=== PATIENT | male | born 1925 | race Hispanic/Latino ===

== ENCOUNTER 2016-03-20 19:14 | Inpatient (IN) | payer MEDICARE, MEDICAID ==
[~2016-03-20] VITALS: Ht 172.7 cm; Wt 68.0 kg
[2016-03-20 19:40] VITALS: BP 134/72
[2016-03-20] MEDS ORDERED: Tylenol #3 tab (300mg/30mg) PO ONE (20:00)
[2016-03-20 22:13] LABS: EOSINOPHILS % (AUTO) 1.7 % (0.0-3.0); LYMPHOCYTES % (AUTO) 17.8 % (20.0-45.0); MEAN CORPUSCULAR HEMOGLOBIN 30.2 PG (27.0-31.0); MEAN CORPUSCULAR HGB CONC 31.8 G/DL (32.0-36.0); MEAN CORPUSCULAR VOLUME 95 FL (80-99); MEAN PLATELET VOLUME 6.7 FL (6.5-10.1); MONOCYTES % (AUTO) 7.2 % (1.0-10.0); NEUTROPHILS % (AUTO) 72.4 % (45.0-75.0); PLATELET COUNT 292 K/UL (150-450); RED BLOOD COUNT 3.71 M/UL (4.70-6.10); RED CELL DISTRIBUTION WIDTH 13.3 % (11.6-14.8); WHITE BLOOD COUNT 10.9 K/UL (4.8-10.8)
[2016-03-20 22:26] LABS: INR 2.2 (0.9-1.1); PROTHROMBIN TIME 22.5 SEC (9.30-11.50)
[2016-03-20 22:29] LABS: ALANINE AMINOTRANSFERASE 14 U/L (3-41); ANION GAP 21 (5-15); ASPARTATE AMINO TRANSFERASE 26 U/L (5-40); CALCIUM 8.6 mg/dL (8.6-10.2); CARBON DIOXIDE 20 mEQ/L (20-30); CHLORIDE 95 mEQ/L (98-107); CREATININE 5.1 mg/dL (0.7-1.2); HEMOLYSIS 3; POTASSIUM 4.5 mEQ/L (3.4-4.9); SODIUM 136 mEQ/L (135-145); TOTAL PROTEIN 6.9 g/dL (6.6-8.7)
[2016-03-20] MEDS ORDERED: NKM (22:40)
--- NOTE | 2016-03-20 23:05 | Emergency Room Report ---
History of Present Illness General Chief Complaint: Multiple Trauma/Fall Source: EMS Present Illness HPI 89-year-old male presents ED complaining of right hip pain. Per EMS patient [place] [employer] Patient hit his head. No LOC. Patient is complaining of some right-sided hip pain and headache. Pain is sharp , 10 out of 10, nonradiating. No other aggravating relieving factors. Patient states he is unable to bear weight on his right leg. Denies any other injuries. Denies any other associated symptoms Allergies: Coded Allergies: No Known Allergies (Verified , 03/19/09) Patient History Past Medical History: none Past Surgical History: none Pertinent Family History: none Social History: Denies: alcohol use, drug use, smoking Immunizations: UTD Reviewed Nursing Documentation: PMH: Agreed, PSxH: Agreed Nursing Documentation-PMH Past Medical History: No Stated History Review of Systems All Other Systems: negative except mentioned in HPI Physical Exam Vital Signs Date Time Temp Pulse Resp B/P Pulse Ox O2 Delivery O2 Flow Rate FiO2 03/20/16 19:22 98.2 64 18 134/72 98 Room Air Sp02 EP Interpretation: reviewed, normal General Appearance: no apparent distress, alert, GCS 15, non-toxic Head: normocephalic Eyes: bilateral eye PERRL, bilateral eye normal inspection ENT: normal ENT inspection Neck: normal inspection Respiratory: chest non-tender, lungs clear, normal breath sounds, speaking full sentences Cardiovascular #1: regular rate, rhythm, no edema Gastrointestinal: normal bowel sounds, non tender, soft, non-distended, no guarding, no rebound Rectal: deferred Genitourinary: no CVA tenderness Musculoskeletal: other - pain to R hip. limited ROM Neurologic: alert, oriented x3, responsive, motor strength/tone normal, sensory intact, speech normal Psychiatric: normal inspection Skin: normal inspection Lymphatic: normal inspection Medical Decision Making Diagnostic Impression: Primary Impression: Intertrochanteric fracture of right femur Qualified Codes: S72.141A - Displaced intertrochanteric fracture of right femur, initial encounter for closed fracture Additional Impression: ARF (acute renal failure) Qualified Codes: N17.9 - Acute kidney failure, unspecified ER Course Hospital Course 89-year-old male presents to ED with R hip pain and shortening s/p fall Differential diagnoses include: fracture, dislocation, contusion Clinical course Patient placed on stretcher. After initial history and physical I ordered labs , pain medication and imaging studies Labs reviewed- no leukocytosis, hb/hct stable, BUN/CR 89/5.1. Chest x-ray- unremarkable Femur x-ray shows shortening of femur consistent with fracture CT Pelvis shows R intertrochanteric fx CT head ok EKG - NSR Case discussed with Dr. Amanda who agreed to consult on this case. Case discussed with Dr. Lopez who agreed to accept the patient to his service for further care and support i. I feel this is a highly complex case requiring extensive working including EKG/Rhythm strip, Xray/CT/US, Blood/urine lab work, repeat exams while in ED, and administration of strong opiates/narcotics for pain control, admission to hospital or close patient follow up. Diagnosis - intertrochanteric fracture, ARF Admitted to floor in serious condition Labs Test 03/20/16 21:45 White Blood Count 10.9 K/UL (4.8-10.8) Red Blood Count 3.71 M/UL (4.70-6.10) Hemoglobin 11.2 G/DL (14.2-18.0) Hematocrit 35.3 % (42.0-52.0) Mean Corpuscular Volume 95 FL (80-99) Mean Corpuscular Hemoglobin 30.2 PG (27.0-31.0) Mean Corpuscular Hemoglobin Concent 31.8 G/DL (32.0-36.0) Red Cell Distribution Width 13.3 % (11.6-14.8) Platelet Count 292 K/UL (150-450) Mean Platelet Volume 6.7 FL (6.5-10.1) Neutrophils (%) (Auto) 72.4 % (45.0-75.0) Lymphocytes (%) (Auto) 17.8 % (20.0-45.0) Monocytes (%) (Auto) 7.2 % (1.0-10.0) Eosinophils (%) (Auto) 1.7 % (0.0-3.0) Basophils (%) (Auto) 1.0 % (0.0-2.0) Prothrombin Time 22.5 SEC (9.30-11.50) Prothromb Time International Ratio 2.2 (0.9-1.1) Activated Partial Thromboplast Time 40 SEC (23-33) Sodium Level 136 mEQ/L (135-145) Potassium Level 4.5 mEQ/L (3.4-4.9) Chloride Level 95 mEQ/L (98-107) Carbon Dioxide Level 20 mEQ/L (20-30) Anion Gap 21 (5-15) Blood Urea Nitrogen 89 mg/dL (7-23) Creatinine 5.1 mg/dL (0.7-1.2) Estimat Glomerular Filtration Rate mL/min (>60) Glucose Level 136 mg/dL (74-106) Calcium Level 8.6 mg/dL (8.6-10.2) Total Bilirubin 0.3 mg/dL (0.0-1.2) Aspartate Amino Transf (AST/SGOT) 26 U/L (5-40) Alanine Aminotransferase (ALT/SGPT) 14 U/L (3-41) Alkaline Phosphatase 66 U/L (40-129) Total Protein 6.9 g/dL (6.6-8.7) Albumin 3.6 g/dL (3.5-5.2) Globulin 3.3 g/dL Albumin/Globulin Ratio 1.0 (1.0-2.7) EKG Diagnostic Results Rate: normal Rhythm: NSR ST Segments: no acute changes ASA given to the pt in ED: No Rhythm Strip Diag. Results EP Interpretation: yes Rhythm: NSR, no PVC's, no ectopy Chest X-Ray Diagnostic Results EP Interpretation: Yes Findings: no consolidation, no effusion, no pneumothorax, no acute cardiopulmonary disease Number of Views: 1 Other X-Ray Diagnostic Results Other X-Ray Diagnostic Results : X-Ray Ordered: R femur EP Interpretation: Yes Findings: no dislocation, other - intertrochanteric fx Number of Views: 3 CT/MRI/US Diagnostic Results CT/MRI/US Diagnostic Results : Imaging Test Ordered: CT Head, CT Pelvis Impression CT head - no acute process CT pelvis - R intertrochanteric fx Last Vital Signs Date Time Temp Pulse Resp B/P Pulse Ox O2 Delivery O2 Flow Rate FiO2 03/20/16 22:16 98.2 03/20/16 19:40 89 18 134/72 98 Room Air Status: improved Disposition: ADMITTED INPATIENT Condition: Serious Referrals: NOT CHOSEN IPA/,REFERRING (PCP) BARBI PATTERSON M.D. Mar 20, 2016 23:05
[2016-03-20 23:49] VITALS: BP 135/76
[2016-03-21 02:10] VITALS: BP 115/71
[2016-03-21 04:00] VITALS: BP 121/79
[2016-03-21] MEDS ORDERED: Zolpidem 5mg tab ORAL PRN (07:00)
[2016-03-21] MEDS ORDERED: Milk of Magnesia 30ml Ud ORAL PRN (07:00)
[2016-03-21 08:15] VITALS: BP 157/75
[2016-03-21] MEDS ORDERED: Heparin 5000 units/ml inj SUBQ SCH ×2 (09:00→21:00)
--- NOTE | 2016-03-21 09:12 | Diagnostic Imaging Report ---
Indication: Chest pain Technique: XRAY CHEST 1 V Comparison: None Findings: Cardiomediastinal silhouette is within normal limits. Atherosclerotic changes are seen. There is no consolidation or pleural effusion. Degenerative changes of the spine are seen. Mild reticular opacities are seen of the lower lung green. Chronic appearing left seventh rib fracture deformity is noted. Impression: Mild acuity indeterminate interstitial opacities of the lung bases with suspected calcification in the right base. Comparison to prior study should be made if available. Clinical correlation recommended with followup as indicated.
--- NOTE | 2016-03-21 09:38 | Diagnostic Imaging Report ---
Indication: Right hip pain status post fall Technique: CT pelvis was performed utilizing automated exposure control without intravenous contrast material. Axial and coronal images were generated. CT dose: Total DLP 344 mGycm; CTDI vol 11.0 mGy Comparison: None Findings: There is a minimally impacted right femoral neck fracture. Osteopenia is noted. There is anterolisthesis of L5 on S1 with left L5 pars defect. Partially visualized bilateral rib deformities are present. Prostate is prominent. Colonic diverticula are noted. Atherosclerotic changes are seen. Post surgical changes of bowel are seen in the pelvis. Impression: Acute minimally impacted right femoral neck fracture. Other findings as above. The CT scanner at [facility] is accredited by the [employer] and the scans are performed using protocols designed to limit radiation exposure to as low as reasonably achievable to attain images of sufficient resolution adequate for diagnostic evaluation.
[2016-03-21] MEDS: Norco 10mg/325mg tab ORAL PRN (10:16)
--- NOTE | 2016-03-21 10:43 | Consultation ---
Consult Note Consult Note patient seen/evaluated. Right hip impacted femoral neck fracture, [place] I. Recommend surgery with percutaneous pinning. Risk/Benefits/Complications discussed. Monitor INR and repeat PT/PTT. NPO past midnight. Medical clearance per Dr. Talavera. 2D echo ordered. NEO Page Mar 21, 2016 10:43
[2016-03-21 11:41] LABS: BASOPHILS % (AUTO) 1.2 % (0.0-2.0); EOSINOPHILS % (AUTO) 3.7 % (0.0-3.0); LYMPHOCYTES % (AUTO) 22.1 % (20.0-45.0); MEAN CORPUSCULAR HEMOGLOBIN 30.9 PG (27.0-31.0); MEAN CORPUSCULAR VOLUME 96 FL (80-99); MEAN PLATELET VOLUME 5.4 FL (6.5-10.1); MONOCYTES % (AUTO) 9.7 % (1.0-10.0); NEUTROPHILS % (AUTO) 63.3 % (45.0-75.0); PLATELET COUNT 246 K/UL (150-450); RED BLOOD COUNT 3.23 M/UL (4.70-6.10); RED CELL DISTRIBUTION WIDTH 13.1 % (11.6-14.8); WHITE BLOOD COUNT 9.3 K/UL (4.8-10.8)
--- NOTE | 2016-03-21 11:46 | Diagnostic Imaging Report ---
Indication: Right femur pain status post fall Technique: XRAY FEMUR 2 VIEWS RIGHT Comparison: None Findings: There is a minimally impacted right femoral neck fracture. Osteopenia is noted. Right knee arthroplasty is seen. Impression: Minimally impacted right femoral neck fracture.
--- NOTE | 2016-03-21 11:46 | Diagnostic Imaging Report ---
Indication: Head pain status post fall Technique: Continuous helical CT scanning of the head was performed utilizing automated exposure control without intravenous contrast material. Axial and coronal reconstructions were obtained. Comparison: None CT dose: Total DLP 1369 mGycm; CTDI vol 70.4 mGy Findings: There is no acute intracranial hemorrhage, mass effect or cortical edema. The ventricles, cisterns and sulci are prominent consistent with atrophy. Periventricular hypoattenuation is seen, a nonspecific finding. The posterior fossa and fourth ventricle are unremarkable. Sellar and suprasellar regions are grossly unremarkable. Visualized mastoid air cells and paranasal sinuses are unremarkable. No focal lesions of the bony calvarium or soft tissues of the scalp are seen. Impression: No evidence of acute intracranial hemorrhage, mass effect or cortical edema. MRI may be obtained for more sensitive evaluation as clinically indicated. Atrophy and nonspecific periventricular hypoattenuation suggestive of chronic ischemic microvascular changes. The CT scanner at [facility] is accredited by the [employer] and the scans are performed using protocols designed to limit radiation exposure to as low as reasonably achievable to attain images of sufficient resolution adequate for diagnostic evaluation.
[2016-03-21 11:50] VITALS: BP 139/72
[2016-03-21 12:07] LABS: ANION GAP 17 (5-15); CALCIUM 8.1 mg/dL (8.6-10.2); CARBON DIOXIDE 19 mEQ/L (20-30); CHLORIDE 106 mEQ/L (98-107); CREATININE 4.3 mg/dL (0.7-1.2); HEMOLYSIS 1; POTASSIUM 4.3 mEQ/L (3.4-4.9); SODIUM 142 mEQ/L (135-145)
--- NOTE | 2016-03-21 12:47 | Consultation ---
Consult Note Consult Note asked to eval at the request of Dr Talavera 89-year-old male presents ED complaining of right hip pain. Per EMS patient had mechanical [place] [employer] Patient hit his head. No LOC. Patient is complaining of some right-sided hip pain and headache. Pain is sharp , 10 out of 10, nonradiating. No other aggravating relieving factors. Patient states he is unable to bear weight on his right leg. Denies any other injuries. Denies any other associated symptoms Patient interviewed and examined- Data reviewed . Assessment/Plan Acute Renal Failure - ? CKD underlying- ( Baseline SCr unknown) In house for fall and right hip Fx- h/o Bladder vs Prostate Ca, had surgery at [facility] Plan: Tucker- Urine studies- IV hydration- Monitor Renal Parameters- check PSA and Testostrone level CAITLYN LAKHANI Mar 21, 2016 12:47
[2016-03-21] MEDS ORDERED: HYDROmorphone 1mg/ml Carpuject IVP PRN (13:00)
[2016-03-21] MEDS: Docusate 100mg cap ORAL SCH ×2 (14:29→17:04)
[2016-03-21 16:00] VITALS: BP 153/79
[2016-03-21 19:58] VITALS: BP 144/62
[2016-03-21] MEDS: Tamsulosin 0.4mg cap ORAL SCH (20:40)
[2016-03-21 22:00] LABS: APPEARANCE,URINE CLOUDY; KETONES,URINE NEGATIVE (NEGATIVE); LEUKOCYTE ESTERASE ,URINE 2+ (NEGATIVE); NITRITE,URINE NEGATIVE (NEGATIVE); PH,URINE 6.5 (4.5-8.0); PROTEIN,URINE 4+ (NEGATIVE); UROBILINOGEN,URINE NORMAL MG/DL (0.0-1.0)
[2016-03-21 22:15] LABS: BACTERIA,URINE FEW /HPF; RBC,URINE TNTC /HPF (0 - 0)
[2016-03-21 22:16] LABS: SQUAMOUS EPITHELIAL CELL,UR OCCASIONAL /LPF (NONE/OCC)
[2016-03-22] VITALS (14 sets, daily range): BP systolic 131–184; BP diastolic 52–86
--- NOTE | 2016-03-22 04:17 | History and Physical Report ---
DATE OF ADMISSION: 03/20/2016 REASON FOR ADMISSION: Status post fall with evidence of right intertrochanteric fracture. HISTORY OF PRESENT ILLNESS: The patient is an 89-year-old male presented to the emergency room. The patient with significant right hip pain. The patient apparently had a mechanical trip and fall non syncopal. the patient has had no loss of consciousness. The patient complains of right-sided hip pain and headache and was evaluated in the emergency room. The patient unable to bear weight. He noted to have a right intertrochanteric fracture. The patient is comfortable at present, but does have significant amount of pain. Incidentally, the patient noted to have significant renal failure, but denies any dialysis. PAST MEDICAL HISTORY: None. MEDICATIONS: None. SOCIAL HISTORY: The patient currently is homeless, nonsmoker, nondrinker. REVIEW OF SYSTEMS: Otherwise fairly negative. PHYSICAL EXAMINATION: GENERAL: A well-developed male comfortable at present. VITAL SIGNS: Blood pressure 157/75, pulse 92, respiratory 21, saturation 97%, and temperature 97.7 degrees. HEENT: Fairly negative. Extraocular movements are grossly intact. NECK: Supple. LUNGS: Fairly clear. Symmetric. CARDIAC: S1 and S2 regular rhythm. Positive S4. No murmurs or rubs. ABDOMEN: Soft and nontender. EXTREMITIES: No cyanosis or clubbing. The patient has some deformities noted of the right leg. Unable to move the hip . NEUROLOGIC: He is otherwise grossly nonfocal. Alert. LABORATORY AND DIAGNOSTIC DATA: Reviewed. BUN 89, creatinine 5.1, sodium 136, and potassium 4.5. White count 10.9, hemoglobin 11.2, hematocrit 35, and platelets are 292,000. X-ray noted and reviewed with notable right femoral neck fracture. IMPRESSION: 1. Status post non syncopal fall. 2. Right hip fracture. 3. Evidence of chronic renal failure. 4. Evidence of anemia. 5. Advanced age debility. RECOMMENDATION: We will obtain echocardiogram. We will obtain renal ultrasound and renal evaluation to assess further IV hydration. Pain control. DVT prophylaxis. Proceed with orthopedic surgery. Pending clearance. Obtain Cardiology evaluation to assess and monitor clinically for further changes and ongoing intervention . Gustavo Lopez M.D. DR: Liban JOB#: [id number] CC: CHYNA
[2016-03-22] MEDS: Norco 10mg/325mg tab ORAL PRN (05:16)
[2016-03-22] MEDS ORDERED: ceFAZolin sod 1 GM in D5W 55 ML IV ONE (06:00)
[2016-03-22 07:37] LABS: INR 1.6 (0.9-1.1); PROTHROMBIN TIME 16.4 SEC (9.30-11.50)
[2016-03-22 07:38] LABS: BASOPHILS % (AUTO) 0.6 % (0.0-2.0); EOSINOPHILS % (AUTO) 2.9 % (0.0-3.0); LYMPHOCYTES % (AUTO) 18.2 % (20.0-45.0); MEAN CORPUSCULAR HEMOGLOBIN 31.4 PG (27.0-31.0); MEAN CORPUSCULAR HGB CONC 32.4 G/DL (32.0-36.0); MEAN CORPUSCULAR VOLUME 97 FL (80-99); MEAN PLATELET VOLUME 6.4 FL (6.5-10.1); MONOCYTES % (AUTO) 9.2 % (1.0-10.0); NEUTROPHILS % (AUTO) 69.2 % (45.0-75.0); PLATELET COUNT 217 K/UL (150-450); RED BLOOD COUNT 2.91 M/UL (4.70-6.10); WHITE BLOOD COUNT 9.6 K/UL (4.8-10.8)
[2016-03-22 07:45] LABS: HEMOGLOBIN A1C 5.2 % (< 6.0)
[2016-03-22 08:08] LABS: FERRITIN 220 ng/mL (10-230)
[2016-03-22 08:18] LABS: ALANINE AMINOTRANSFERASE 10 U/L (3-41); ALBUMIN/GLOBULIN RATIO 0.8 (1.0-2.7); ANION GAP 18 (5-15); ASPARTATE AMINO TRANSFERASE 15 U/L (5-40); CARBON DIOXIDE 18 mEQ/L (20-30); CHLORIDE 107 mEQ/L (98-107); CHOLESTEROL 120 mg/dL (< 200); CHOLESTEROL/HDL RATIO 2.1 (3.3-4.4); CRP QUANT 15.5 mg/dL (< 0.5); HEMOLYSIS 3; LDL CHOLESTEROL (CALC.) 47 mg/dL (60-99); MAGNESIUM 1.8 mg/dL (1.7-2.5); PHOSPHORUS 3.9 mg/dL (2.5-4.8); POTASSIUM 4.2 mEQ/L (3.4-4.9); SODIUM 143 mEQ/L (135-145); TOTAL PROTEIN 5.5 g/dL (6.6-8.7); URIC ACID 8.4 mg/dL (3.0-7.5)
--- NOTE | 2016-03-22 08:18 | General Progress Note ---
Assessment/Plan Assessment/Plan IMPRESSION: 1. Status post non syncopal fall. 2. Right hip fracture. 3. Evidence of chronic renal failure. 4. Evidence of anemia. 5. Advanced age debility. PLAN obtain echo proceed with ortho rx will need short term snf pain medications otherwise same check renal us and follow up labs impression, plan, and exam edited and reviewed in detail care discussed with RN Subjective Allergies: Coded Allergies: No Known Allergies (Verified , 03/19/09) Subjective comfortable all consultants appreciated echo pending Objective Last 24 Hour Vital Signs Date Time Temp Pulse Resp B/P Pulse Ox O2 Delivery O2 Flow Rate FiO2 03/22/16 04:00 97.9 109 20 159/83 91 Room Air 03/22/16 00:09 184/78 03/22/16 00:00 98.4 101 20 184/78 93 Room Air 03/21/16 19:58 99.1 106 20 144/62 93 Room Air 03/21/16 16:00 98.6 93 18 153/79 92 Room Air 03/21/16 11:50 98.4 95 21 139/72 99 Room Air 03/21/16 11:15 98.4 Intake and Output 03/21/16 03/22/16 19:00 07:00 Intake Total 2050 ml 1450 ml Output Total 1400 ml 1650 ml Balance 650 ml -200 ml Intake Oral 960 ml 250 ml IV Total 1090 ml 1200 ml Output Urine Total 1400 ml 1650 ml # Voids 4 Laboratory Tests 03/21/16 11:30: White Blood Count 9.3, Red Blood Count 3.23L, Hemoglobin 10.0L, Hematocrit 31.1L , Mean Corpuscular Volume 96, Mean Corpuscular Hemoglobin 30.9, Mean Corpuscular Hemoglobin Concent 32.0, Red Cell Distribution Width 13.1, Platelet Count 246, Mean Platelet Volume 5.4L, Neutrophils (%) (Auto) 63.3, Lymphocytes ( %) (Auto) 22.1, Monocytes (%) (Auto) 9.7, Eosinophils (%) (Auto) 3.7H, Basophils (%) (Auto) 1.2, Activated Partial Thromboplast Time 43H, Sodium Level 142, Potassium Level 4.3, Chloride Level 106, Carbon Dioxide Level 19L, Anion Gap 17H, Blood Urea Nitrogen 77H, Creatinine 4.3H, Estimat Glomerular Filtration Rate , Glucose Level 130H, Calcium Level 8.1L 03/21/16 17:30: Urine Color Pale yellow, Urine Appearance Cloudy, Urine pH 6.5, Urine Specific [place] 1.010, Urine Protein 4+H, Urine Glucose (UA) Negative, Urine Ketones Negative, Urine Occult Blood 5+H, Urine Nitrite Negative, Urine Bilirubin Negative, Urine Urobilinogen Normal, Urine Leukocyte Esterase 2+H, Urine RBC TntcH, Urine WBC 10-15H, Urine Squamous Epithelial Cells Occasional, Urine Bacteria Few, Urine Eosinophils None seen, Urine Random Sodium 56 03/22/16 05:00: Urine Eosinophils [Pending] 03/22/16 06:50: White Blood Count 9.6, Red Blood Count 2.91L, Hemoglobin 9.2L, Hematocrit 28.3L , Mean Corpuscular Volume 97, Mean Corpuscular Hemoglobin 31.4H, Mean Corpuscular Hemoglobin Concent 32.4, Red Cell Distribution Width 13.0, Platelet Count 217, Mean Platelet Volume 6.4L, Neutrophils (%) (Auto) 69.2, Lymphocytes ( %) (Auto) 18.2L, Monocytes (%) (Auto) 9.2, Eosinophils (%) (Auto) 2.9, Basophils (%) (Auto) 0.6, Sodium Level [Pending], Potassium Level [Pending], Chloride Level [Pending], Carbon Dioxide Level [Pending], Blood Urea Nitrogen [ Pending], Creatinine [Pending], Estimat Glomerular Filtration Rate [Pending], Glucose Level [Pending], Calcium Level [Pending], Prothrombin Time 16.4H, Prothromb Time International Ratio 1.6H, Hemoglobin A1c 5.2, Uric Acid [Pending] , Phosphorus Level [Pending], Magnesium Level [Pending], Iron Level [Pending], Unsaturated Iron Binding [Pending], Ferritin 220, Total Bilirubin [Pending], Gamma Glutamyl Transpeptidase [Pending], Aspartate Amino Transf (AST/SGOT) [ Pending], Alanine Aminotransferase (ALT/SGPT) [Pending], Alkaline Phosphatase [ Pending], C-Reactive Protein, Quantitative [Pending], Pro-B-Type Natriuretic Peptide 2575H, Total Protein [Pending], Albumin [Pending], Globulin [Pending], Triglycerides Level [Pending], Cholesterol Level [Pending], LDL Cholesterol [ Pending], HDL Cholesterol [Pending], Cholesterol/HDL Ratio [Pending], Prostate Specific Antigen [Pending], Vitamin B12 Level [Pending], Folate [Pending], Total Testosterone [Pending] Height (Feet): 5 Height (Inches): 8.00 Weight (Pounds): 150 Objective GENERAL: A well-developed male NAD HEENT: Fairly negative. Extraocular movements are grossly intact. NECK: Supple. LUNGS: Fairly clear. Symmetric. without rhonchi or wheeze CARDIAC: S1 and S2 regular rhythm. Positive S4. No murmurs or rubs. ABDOMEN: Soft and nontender. no HSM EXTREMITIES: No cyanosis or clubbing. The patient has some deformities noted of the right leg. Unable to move the hip . NEUROLOGIC: He is otherwise grossly nonfocal. Alert. PATRIA PLEITEZ Mar 22, 2016 08:18
[2016-03-22 08:43] LABS: PSA TOTAL 4.3 ng/mL (< 4.5)
[2016-03-22] MEDS: Docusate 100mg cap ORAL SCH ×3 (09:00→20:19)
--- NOTE | 2016-03-22 09:47 | General Progress Note ---
Assessment/Plan Status: unchanged Assessment/Plan status: Acute Renal Failure - ? CKD underlying- ( Baseline SCr unknown) In hospital for fall and right hip Fx- HEMATURIA, h/o Bladder vs Prostate Ca, had surgery at [facility] ? UTI Plan: Monitor renal parameter- Antibiotics- Kidney GOE- pending start Lopressor for BP- Rocephin IV Subjective ROS Limited/Unobtainable: No Constitutional: Reports: malaise Allergies: Coded Allergies: No Known Allergies (Verified , 03/19/09) Objective Last 24 Hour Vital Signs Date Time Temp Pulse Resp B/P Pulse Ox O2 Delivery O2 Flow Rate FiO2 03/22/16 04:00 97.9 109 20 159/83 91 Room Air 03/22/16 00:09 184/78 03/22/16 00:00 98.4 101 20 184/78 93 Room Air 03/21/16 19:58 99.1 106 20 144/62 93 Room Air 03/21/16 16:00 98.6 93 18 153/79 92 Room Air 03/21/16 11:50 98.4 95 21 139/72 99 Room Air 03/21/16 11:15 98.4 Intake and Output 03/21/16 03/22/16 19:00 07:00 Intake Total 2050 ml 1450 ml Output Total 1400 ml 1650 ml Balance 650 ml -200 ml Intake Oral 960 ml 250 ml IV Total 1090 ml 1200 ml Output Urine Total 1400 ml 1650 ml # Voids 4 Laboratory Tests 03/21/16 11:30: White Blood Count 9.3, Red Blood Count 3.23L, Hemoglobin 10.0L, Hematocrit 31.1L , Mean Corpuscular Volume 96, Mean Corpuscular Hemoglobin 30.9, Mean Corpuscular Hemoglobin Concent 32.0, Red Cell Distribution Width 13.1, Platelet Count 246, Mean Platelet Volume 5.4L, Neutrophils (%) (Auto) 63.3, Lymphocytes ( %) (Auto) 22.1, Monocytes (%) (Auto) 9.7, Eosinophils (%) (Auto) 3.7H, Basophils (%) (Auto) 1.2, Activated Partial Thromboplast Time 43H, Sodium Level 142, Potassium Level 4.3, Chloride Level 106, Carbon Dioxide Level 19L, Anion Gap 17H, Blood Urea Nitrogen 77H, Creatinine 4.3H, Estimat Glomerular Filtration Rate , Glucose Level 130H, Calcium Level 8.1L 03/21/16 17:30: Urine Color Pale yellow, Urine Appearance Cloudy, Urine pH 6.5, Urine Specific [place] 1.010, Urine Protein 4+H, Urine Glucose (UA) Negative, Urine Ketones Negative, Urine Occult Blood 5+H, Urine Nitrite Negative, Urine Bilirubin Negative, Urine Urobilinogen Normal, Urine Leukocyte Esterase 2+H, Urine RBC TntcH, Urine WBC 10-15H, Urine Squamous Epithelial Cells Occasional, Urine Bacteria Few, Urine Eosinophils None seen, Urine Random Sodium 56 03/22/16 05:00: Urine Eosinophils None seen 03/22/16 06:50: White Blood Count 9.6, Red Blood Count 2.91L, Hemoglobin 9.2L, Hematocrit 28.3L , Mean Corpuscular Volume 97, Mean Corpuscular Hemoglobin 31.4H, Mean Corpuscular Hemoglobin Concent 32.4, Red Cell Distribution Width 13.0, Platelet Count 217, Mean Platelet Volume 6.4L, Neutrophils (%) (Auto) 69.2, Lymphocytes ( %) (Auto) 18.2L, Monocytes (%) (Auto) 9.2, Eosinophils (%) (Auto) 2.9, Basophils (%) (Auto) 0.6, Sodium Level 143, Potassium Level 4.2, Chloride Level 107, Carbon Dioxide Level 18L, Anion Gap 18H, Blood Urea Nitrogen 69H, Creatinine 4.0H, Estimat Glomerular Filtration Rate , Glucose Level 116H, Calcium Level 8.0L, Prothrombin Time 16.4H, Prothromb Time International Ratio 1.6H, Hemoglobin A1c 5.2, Uric Acid 8.4H, Phosphorus Level 3.9, Magnesium Level 1.8, Iron Level 18L, Total Iron Binding Capacity 153L, Percent Iron Saturation 12L, Unsaturated Iron Binding 135, Ferritin 220, Total Bilirubin 0.5, Gamma Glutamyl Transpeptidase 11, Aspartate Amino Transf (AST/SGOT) 15, Alanine Aminotransferase (ALT/SGPT) 10, Alkaline Phosphatase 51, C-Reactive Protein, Quantitative 15.5H, Pro-B-Type Natriuretic Peptide 2575H, Total Protein 5.5L, Albumin 2.6L, Globulin 2.9, Albumin/Globulin Ratio 0.8L, Triglycerides Level 83 , Cholesterol Level 120, LDL Cholesterol 47L, HDL Cholesterol 56, Cholesterol/ HDL Ratio 2.1L, Prostate Specific Antigen 4.3, Vitamin B12 Level 390, Folate [ Pending], Total Testosterone [Pending] Height (Feet): 5 Height (Inches): 8.00 Weight (Pounds): 150 General Appearance: no apparent distress Objective other PE not changed CAITLYN LAKHANI Mar 22, 2016 09:47
[2016-03-22] MEDS: Metoprolol 25mg tab ORAL SCH ×2 (11:27→20:19)
[2016-03-22] MEDS: cefTRIAXone 1 GM in D5W 55 ML IVPB SCH (11:28)
--- NOTE | 2016-03-22 15:36 | Pre-Procedure Note/Attestation ---
Pre-Procedure Note/Attestation Complete Prior to Procedure Planned Procedure: right Procedure Narrative: Rt Hip ORIF with percutaneous pins Indications for Procedure Pre-Operative Diagnosis: Rt Hip Fracture Attestation I attest that I discussed the nature of the procedure; its benefits; risks and complications; and alternatives (and the risks and benefits of such alternatives ), prior to the procedure, with the patient (or the patient's legal bilingual sales representative). I attest that, if there was a reasonable possibility of needing a blood transfusion, the patient (or the patient's legal bilingual sales representative) was given the [facility] standardized written summary, pursuant to the Dean Debo Blood Safety Act ([place] Health and Safety Code # 1645, as amended). I attest that I re-evaluated the patient just prior to the surgery and that there has been no change in the patient's H&P, except as documented below: NONE NEO ARMENDARIZ Mar 22, 2016 15:36
[2016-03-22] MEDS ORDERED: HYDROmorphone 1mg/ml Carpuject SUBQ PRN (15:45)
[2016-03-22] MEDS ORDERED: LR 1000ml 1,000 ML IVLG SCH (16:30)
[2016-03-22] MEDS ORDERED: LORazepam Inj 2mg/ml 1ml IV PRN (16:30)
--- NOTE | 2016-03-22 16:30 | Anethesia Preoperative Eval ---
Anesthesia Pre-op PMH/ROS General Date of Evaluation: Mar 22, 2016 Time of Evaluation: 15:40 Anesthesiologist: Onesimo ASA Score: ASA 3 Mallampati Score Class I : Soft palate, uvula, fauces, pillars visible Class II: Soft palate, uvula, fauces visible Class III: Soft palate, base of uvula visible Class IV: Only hard plate visible Mallampati Classification: Class II Surgeon: Erasto Diagnosis: Right hip fracture Surgical Procedure: ORIF Allergies: Coded Allergies: No Known Allergies (Verified , 03/19/09) Medications: see eMAR Past Medical History Cardiovascular: Denies: CAD, HTN, [place], arrhythmia, other, valve dz Pulmonary: Denies: COPD, STELLA, asthma, other Gastrointestinal/Genitourinary: Denies: CRI, ESRD, GERD, other Neurologic/Psychiatric: Denies: CVA, TIA, dementia, depression/anxiety, other Endocrine: Denies: DM, hypothyroidism, other, steroids HEENT: Denies: [place] (L), [place] (R), cataract (L), cataract (R), glaucoma, other Hematology/Immune: Denies: DVT, anemia, bleeding disorder, other Musculoskeletal/Integumentary: Reports: OA PMH Narrative: OA PSxH Narrative: Bilateral TKR Anesthesia Pre-op Phys. Exam Physician Exam Last Vital Signs Date Time Temp Pulse Resp B/P Pulse Ox O2 Delivery O2 Flow Rate FiO2 03/22/16 12:05 97.6 03/22/16 12:01 86 21 131/65 97 Nasal Cannula 2.0 Constitutional: NAD Neurologic: CN 2-12 intact Cardiovascular: RRR Respiratory: CTA Gastrointestinal: S/NT/ND Airway Exam Mallampati Score: Class II MO: full ROM: full Teeth: missing Anesthesia Pre-op A/P Labs Hematology Test 03/22/16 06:50 White Blood Count 9.6 K/UL (4.8-10.8) Red Blood Count 2.91 M/UL (4.70-6.10) L Hemoglobin 9.2 G/DL (14.2-18.0) L Hematocrit 28.3 % (42.0-52.0) L Mean Corpuscular Volume 97 FL (80-99) Mean Corpuscular Hemoglobin 31.4 PG (27.0-31.0) H Mean Corpuscular Hemoglobin Concent 32.4 G/DL (32.0-36.0) Red Cell Distribution Width 13.0 % (11.6-14.8) Platelet Count 217 K/UL (150-450) Mean Platelet Volume 6.4 FL (6.5-10.1) L Neutrophils (%) (Auto) 69.2 % (45.0-75.0) Lymphocytes (%) (Auto) 18.2 % (20.0-45.0) L Monocytes (%) (Auto) 9.2 % (1.0-10.0) Eosinophils (%) (Auto) 2.9 % (0.0-3.0) Basophils (%) (Auto) 0.6 % (0.0-2.0) Coagulation Test 03/22/16 06:50 Prothrombin Time 16.4 SEC (9.30-11.50) H Prothromb Time International Ratio 1.6 (0.9-1.1) H Chemistry Test 03/22/16 06:50 Sodium Level 143 mEQ/L (135-145) Potassium Level 4.2 mEQ/L (3.4-4.9) Chloride Level 107 mEQ/L (98-107) Carbon Dioxide Level 18 mEQ/L (20-30) L Anion Gap 18 (5-15) H Blood Urea Nitrogen 69 mg/dL (7-23) H Creatinine 4.0 mg/dL (0.7-1.2) H Estimat Glomerular Filtration Rate mL/min (>60) Glucose Level 116 mg/dL (74-106) H Hemoglobin A1c 5.2 % (< 6.0) Uric Acid 8.4 mg/dL (3.0-7.5) H Calcium Level 8.0 mg/dL (8.6-10.2) L Phosphorus Level 3.9 mg/dL (2.5-4.8) Magnesium Level 1.8 mg/dL (1.7-2.5) Iron Level 18 ug/dL (59-158) L Total Iron Binding Capacity 153 ug/dL (250-400) L Percent Iron Saturation 12 % (15-50) L Unsaturated Iron Binding 135 ug/dL (112-346) Ferritin 220 ng/mL (10-230) Total Bilirubin 0.5 mg/dL (0.0-1.2) Gamma Glutamyl Transpeptidase 11 U/L (8-61) Aspartate Amino Transf (AST/SGOT) 15 U/L (5-40) Alanine Aminotransferase (ALT/SGPT) 10 U/L (3-41) Alkaline Phosphatase 51 U/L (40-129) C-Reactive Protein, Quantitative 15.5 mg/dL (< 0.5) H Pro-B-Type Natriuretic Peptide 2575 pg/mL (0-450) H Total Protein 5.5 g/dL (6.6-8.7) L Albumin 2.6 g/dL (3.5-5.2) L Globulin 2.9 g/dL Albumin/Globulin Ratio 0.8 (1.0-2.7) L Triglycerides Level 83 mg/dL (< 150) Cholesterol Level 120 mg/dL (< 200) LDL Cholesterol 47 mg/dL (60-99) L HDL Cholesterol 56 mg/dL (> 60) Cholesterol/HDL Ratio 2.1 (3.3-4.4) L Prostate Specific Antigen 4.3 ng/mL (< 4.5) Vitamin B12 Level 390 pg/mL (211-946) Folate Pending Total Testosterone Pending Studies Pre-op Studies: EKG - SR, IRBBB, echo - EF 65-70% Risk Assessment & Plan Assessment: Right hip fracture Plan: GA, LMA Status Change Before Surgery: No Pre-Antibiotics Drug: Ancef Given Within 1 Hr of Incision: Yes - 1600 Time Given: 16:00 GHAZALA YEPEZ M.D. Mar 22, 2016 16:30
--- NOTE | 2016-03-22 16:32 | Immediate Post-Op Evaluation ---
Immediate Post-Op Evalulation Immediate Post-Op Evalulation Procedure: ORIF right hip Date of Evaluation: Mar 22, 2016 Time of Evaluation: 16:52 IV Fluids: 750 Urinary Output: 70 Blood Pressure Systolic: 153 Blood Pressure Diastolic: 76 Pulse Rate: 95 Respiratory Rate: 14 O2 Sat by Pulse Oximetry: 100 Temperature (Fahrenheit): 97.9 Pain Score (1-10): 0 Nausea: No Vomiting: No Complications No complication Patient Status: awake, patent, none Hydration Status: adequate Drug: Ancef Given Within 1 Hr of Incision: Yes Time Given: 16:00 GHAZALA YEPEZ M.D. Mar 22, 2016 16:32
--- NOTE | 2016-03-22 16:46 | Brief Operative Note ---
Immediate Post Operative Note Operative Note Chief Complaint: rt hip pain Pre-op Diagnosis: rt hip fracture Procedure: rt hip ORIF with percutaneous pins Post-op Diagnosis: same as pre-op Findings: consistent w/pre-op dx studies Surgeon: md marcela Manager Government: anita de oliveira Anesthesiologist: md javier Anesthesia: general Specimen: none Complications: none Condition: stable Estimated Blood Loss: minimal Drains: none Implant(s) used?: Yes - BING Banuelos Mar 22, 2016 16:46
[2016-03-22] MEDS: Hydromorphone 0.5mg/0.5ml inj IVP PRN ×2 (17:30→18:00)
--- NOTE | 2016-03-22 18:17 | Cardiology Report ---
APPROVED REPORT EXAM: Two-dimensional and M-mode echocardiogram with Doppler and color Doppler. INDICATION Congestive Heart Failure M-Mode DIMENSIONS IVSd1.1 (0.7-1.1cm)Left Atrium (MM)3.5 (1.6-4.0cm) LVDd4.5 (3.5-5.6cm)Aortic Root3.1 (2.0-3.7cm) PWd.9 (0.7-1.1cm)Aortic Cusp Exc.1.7 (1.5-2.0cm) LVDs2.1 (2.5-4.0cm) PWs1.2 cm Normal left ventricular chamber size, systolic function and wall motion. Left ventricular ejection fraction estimated to be 65-70%. No evidence of ventricular hypertrophy. Anterior Echo-free space, may be due to pericardial fat or effusion. No evidence of pericardial effusion. Mild left atrial enlargement. Right cardiac chamber sizes are within normal limits. Mild focal aortic valve sclerosis with adequate cusp excursion. Mildly thickened mitral valve leaflets with normal excursion. Mild mitral annulus and aortic root calcification. Pulmonic valve visualized. Normal tricuspid valve structure. IVC at normal size with physiologic collapse. A color flow and spectral Doppler study was performed and revealed: Mild aortic regurgitation. Mild mitral regurgitation. Mitral diastolic velocities suggest reduced left ventricular relaxation (Grade I). Mild tricuspid regurgitation. Tricuspid systolic velocities suggests peak right ventricular systolic pressure of 44 mmHg, consistent with mild pulmonary hypertension. Trace pulmonic regurgitation present.
[2016-03-22] MEDS ORDERED: Bacitracin 50000 Units Vial IRRIG ONE (18:22)
--- NOTE | 2016-03-22 19:00 | Cardiology Report ---
APPROVED REPORT EKG Measurement Heart [id number] Sinus tachycardia Incomplete right bundle branch block Borderline ECG
[2016-03-22] MEDS ORDERED: D5 1/2NS w/KCl 20mEq 1,000 ML IV SCH (20:00)
[2016-03-22] MEDS: Tamsulosin 0.4mg cap ORAL SCH (20:19)
[2016-03-22] MEDS ORDERED: ceFAZolin sod 0.5 GM in D5W 55 ML IV ONE (21:00)
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
[2016-03-23] VITALS: BP 152/86
--- NOTE | 2016-03-23 00:27 | Operative Note - Dictated ---
DATE OF OPERATION: 03/22/2016 PREOPERATIVE DIAGNOSIS: Right hip subcapital femoral neck fracture with minimal displacement, impacted Garden 1. POSTOPERATIVE DIAGNOSIS: Right hip subcapital femoral neck fracture with minimal displacement, impacted Garden 1. PROCEDURE: Right hip closed reduction, percutaneous pinning using three 6.5 mm Briana partially threaded cancellous screws. SURGEON: Jerson Maurer M.D. MAINFRAME CONSULTANT: Carmelita Brooks PA-C. ANESTHESIOLOGIST: Dean Echols M.D. ANESTHESIA: LMA anesthesia. ESTIMATED BLOOD LOSS: Less than 20 mL. COMPLICATIONS: None. BRIEF HISTORY: The patient is a pleasant 89-year-old gentleman who is an independent ambulator who sustained a fall and broke his right hip. X-rays confirmed the subcapital femoral neck fracture. After full discussion of the risks and benefits of the surgery and complications associated with it including infection, bleeding, neurovascular complication, possibility of malunion or nonunion, possibility of failure of fixation, possible need for further surgery downline, as well as DVT, PEs, and other complications, malunion, avascular necrosis, he opted for surgical treatment as described above. OPERATIVE PROCEDURE: The patient was brought to the operating table and was placed supine. All pressure points were well padded. The right hip was prepped and draped in usual sterile fashion. A standard 2-cm incision was made over the lateral aspect of the femur. The incision was taken to the tensor fascia and fascia was opened. At this point, a guidepin was placed through the lateral cortex of the femur into the neck into the head superiorly. A second one was placed more centrally and the third one was placed more inferiorly. The position was checked on the AP and lateral and appeared to be intraosseous and in good position. On the lateral, this was in the center portion of the femoral head. Care was given to assure that subchondral bone is captured. Once this was completed, measurements were made and two 95 mm screws and one 90 mm screw was used. It was assured that all screw threads which passed the fracture site compressed the fracture. Once this was completed, it was checked and rechecked, and all screws were intraosseous. The pins were removed. Final x-rays were obtained and there was no penetration of screws through the femoral head. This was both checked on AP and lateral. There was excellent alignment of the bone. There was compression of the fracture. Once this was completed, all wounds were thoroughly irrigated using copious amount of fluid. The tensor fascia was closed using #1 Vicryl suture. Subcutaneous tissue was closed using 2-0 Vicryl suture and skin was closed using 3-0 Monocryl suture. Sterile dressing was applied. The patient was taken to recovery room in stable condition. Jerson Maurer M.D. DR: Grace JOB#: [id number] CC: CHYNA
--- NOTE | 2016-03-23 03:47 | Progress Note ---
DATE: 03/22/2016 CARDIOLOGY PROGRESS NOTE SUBJECTIVE: The patient is status post orthopedic surgery today. He underwent right closed reduction with pinning. No intraoperative complications were noted. OBJECTIVE: VITAL SIGNS: Blood pressure 151/86, pulse 107, respirations 17, and afebrile. LUNGS: Bilateral breath sounds with no rales or wheezing. HEART: Regular rhythm and rate. Normal S1 and S2 with a fourth heart sound. ABDOMEN: Soft and nontender. EXTREMITIES: Hip site is dressed and extremities are well perfused. LABORATORY DATA: White count was 9.6 and hemoglobin 9.2 this morning. Pro-natriuretic peptide was 2500. BUN 69 and creatinine 4. IMPRESSION: 1. Hip fracture due to mechanical fall, status post closed reduction. 2. Chronic kidney disease with component of acute renal failure, improving slowly. 3. Acute on chronic diastolic congestive heart failure, clinically compensated. 4. Anemia of chronic kidney disease. 5. Hypertensive heart disease. 6. Sinus tachycardia. PLAN: 1. DVT prophylaxis. 2. Pain control. 3. Continue hydration with IV fluids. 4. Maintain beta blockade and titrate for optimal blood pressure and rate control. Hardik Monae M.D. DR: OLEGARIO JOB#: [id number] CC:
--- NOTE | 2016-03-23 03:58 | Consultation ---
DATE OF CONSULTATION: 03/21/2016 CARDIOLOGY CONSULTATION CONSULTING PHYSICIAN: Hardik Monae M.D. REQUESTING PHYSICIAN: Gustavo Lopez M.D. REASON FOR CONSULTATION: Operative cardiovascular risk assessment. HISTORY OF PRESENT ILLNESS: This is an 89-year-old male. He took a mechanical fall without any loss of consciousness and landed on his right buttock with resultant right intertrochanteric fracture of the hip. The patient is to undergo surgical intervention. I have been asked to address cardiovascular risks associated with anesthesia. PAST MEDICAL HISTORY: Includes hypertension. MEDICATIONS: Prior to admission, none. SOCIAL HISTORY: Negative for smoking or alcohol use. REVIEW OF SYSTEMS: Otherwise not obtainable from the patient as he is a poor historian. PHYSICAL EXAMINATION: VITAL SIGNS: Blood pressure 157/75, pulse 90, respirations 20, and afebrile. HEENT: Conjunctivae pink. Sclerae are anicteric. Oropharynx clear. NECK: Supple. LUNGS: Clear. CARDIAC: Regular rhythm and rate. Normal S1 and S2 with a fourth heart sound. ABDOMEN: Soft and nontender. EXTREMITIES: With no edema. Right hip is tender. No open wound is seen. DIAGNOSTIC DATA: EKG is notable for sinus tachycardia with right bundle-branch block. Echocardiogram revealed normal ejection fraction with mild aortic mitral and tricuspid regurgitations and minimally elevated PA systolic pressures and mild pulmonary hypertension. LABORATORY DATA: White count 9.3 and hemoglobin 10. Potassium 4.3, sodium 142, bicarb 19, BUN 77, and creatinine 4.3. IMPRESSION: 1. Mechanical fall with right hip fracture. 2. Chronic renal failure with probable acute component . 3. Metabolic acidosis. 4. Anemia of chronic kidney disease. 5. Hypertension with hypertensive heart disease. 6. Degenerative valve disease with mild regurgitation. RECOMMENDATIONS: 1. Recommend additional hydration and perioperative beta blockade. 2. Check CK levels to assess for rhabdomyolysis. 3. Minimally increased perioperative cardiovascular risk under general anesthesia is anticipated, which can be decreased with use of beta-blockers and additional hydration for improvement in metabolic parameters. Hardik Monae M.D. DR: OLEGARIO JOB#: [id number] CC:
[2016-03-23 04:00] VITALS: BP 140/76
--- NOTE | 2016-03-23 06:58 | Orthopedic Progress Note ---
Orthopedic - Progress Note Subjective Symptoms: c/o post-op hip pain Objective Vital Signs Laboratory Tests Test 03/23/16 04:45 Urine Eosinophils Pending Last 24 Hour Vital Signs Date Time Temp Pulse Resp B/P Pulse Ox O2 Delivery O2 Flow Rate FiO2 03/23/16 04:00 96.6 77 18 140/76 99 Nasal Cannula 2.0 03/23/16 00:00 97.3 90 18 152/86 98 Nasal Cannula 2.0 03/22/16 20:19 98 149/74 03/22/16 20:00 97.3 107 17 151/86 98 Room Air 03/22/16 18:46 97.9 98 18 149/74 99 Nasal Cannula 3.0 03/22/16 18:10 98.0 99 17 142/67 99 Nasal Cannula 3.0 03/22/16 17:55 98 19 150/75 99 Nasal Cannula 3.0 03/22/16 17:40 100 17 144/52 99 Nasal Cannula 3.0 03/22/16 17:25 99 17 155/77 99 Nasal Cannula 3.0 03/22/16 17:10 100 14 162/82 99 Simple Mask 8.0 03/22/16 16:55 100 21 161/83 97 Simple Mask 8.0 03/22/16 16:51 95 14 100 03/22/16 16:50 99 11 146/81 97 Simple Mask 8.0 03/22/16 16:45 97.9 97 21 153/76 97 Simple Mask 8.0 03/22/16 12:05 97.6 03/22/16 12:01 97.6 86 21 131/65 97 Nasal Cannula 2.0 03/22/16 11:27 77 135/76 03/22/16 08:15 97.6 77 21 135/76 95 Room Air I&O Intake and Output 03/22/16 03/23/16 19:00 07:00 Intake Total 1555 ml 180 ml Output Total 635 ml 700 ml Balance 920 ml -520 ml Intake Oral 180 ml IV Total 1555 ml Output Urine Total 620 ml 700 ml Estimated Blood Loss 15 ml Wound: clean, dry, intact Drains: none Neuro Status: normal Vascular Status: normal Additional Comments today's labs pending. Xray reviewed: Excellent Assessment Post-op Diagnosis POD 1 Procedure Performed rt hip ORIF with percutaneous pins Plan Plan: PT, pain management, discharge plan - rehab. f/u Dr. Maurer 2 weeks , other - follow labs BING COREY Mar 23, 2016 06:58
--- NOTE | 2016-03-23 07:03 | 48 Hour Post Anesthesia Eval ---
Post Anesthesia Evaluation Procedure: ORIF right hip Date of Evaluation: Mar 23, 2016 Time of Evaluation: 06:31 Blood Pressure Systolic: 140 0: 76 Pulse Rate: 77 Respiratory Rate: 18 Temperature (Fahrenheit): 96.6 O2 Sat by Pulse Oximetry: 99 Airway: patent Nausea: No Vomiting: No Pain Intensity: 2 Hydration Status: adequate Cardiopulmonary Status: Stable Mental Status/LOC: patient returned to baseline Follow-up Care/Observations: 0 Post-Anesthesia Complications: 0 Follow-up care needed: N/A Khari Glez MD Mar 23, 2016 07:03
[2016-03-23 07:17] LABS: BASOPHILS % (AUTO) 0.7 % (0.0-2.0); EOSINOPHILS % (AUTO) 4.8 % (0.0-3.0); LYMPHOCYTES % (AUTO) 16.1 % (20.0-45.0); MEAN CORPUSCULAR HEMOGLOBIN 31.2 PG (27.0-31.0); MEAN CORPUSCULAR HGB CONC 32.2 G/DL (32.0-36.0); MEAN CORPUSCULAR VOLUME 97 FL (80-99); MEAN PLATELET VOLUME 6.6 FL (6.5-10.1); MONOCYTES % (AUTO) 9.6 % (1.0-10.0); NEUTROPHILS % (AUTO) 68.7 % (45.0-75.0); PLATELET COUNT 207 K/UL (150-450); RED BLOOD COUNT 2.91 M/UL (4.70-6.10); RED CELL DISTRIBUTION WIDTH 13.4 % (11.6-14.8); WHITE BLOOD COUNT 8.6 K/UL (4.8-10.8)
[2016-03-23 08:00] VITALS: BP 128/69
[2016-03-23 08:11] LABS: ALANINE AMINOTRANSFERASE 8 U/L (3-41); ALBUMIN/GLOBULIN RATIO 0.8 (1.0-2.7); ANION GAP 13 (5-15); ASPARTATE AMINO TRANSFERASE 15 U/L (5-40); CALCIUM 8.3 mg/dL (8.6-10.2); CARBON DIOXIDE 22 mEQ/L (20-30); CHLORIDE 107 mEQ/L (98-107); CREATININE 3.3 mg/dL (0.7-1.2); CRP QUANT 18.3 mg/dL (< 0.5); HEMOLYSIS 1; MAGNESIUM 1.8 mg/dL (1.7-2.5); PHOSPHORUS 4.4 mg/dL (2.5-4.8); POTASSIUM 4.8 mEQ/L (3.4-4.9); SODIUM 142 mEQ/L (135-145); TOTAL PROTEIN 5.6 g/dL (6.6-8.7); URIC ACID 7.9 mg/dL (3.0-7.5)
--- NOTE | 2016-03-23 08:44 | General Progress Note ---
Assessment/Plan Assessment/Plan IMPRESSION: 1. Status post non syncopal fall. 2. Right hip fracture. 3. Evidence of chronic renal failure. 4. Evidence of anemia. 5. Advanced age debility. 6. s/p hip ORIF PLAN SNF discharge DVT prophylaxis hydration renal function improving pain medications otherwise same check renal us and follow up labs impression, plan, and exam edited and reviewed in detail care discussed with RN Subjective Allergies: Coded Allergies: No Known Allergies (Verified , 03/19/09) Subjective comfortable post op Objective Last 24 Hour Vital Signs Date Time Temp Pulse Resp B/P Pulse Ox O2 Delivery O2 Flow Rate FiO2 03/23/16 07:03 77 18 99 03/23/16 04:00 96.6 77 18 140/76 99 Nasal Cannula 2.0 03/23/16 00:00 97.3 90 18 152/86 98 Nasal Cannula 2.0 03/22/16 20:19 98 149/74 03/22/16 20:00 97.3 107 17 151/86 98 Room Air 03/22/16 18:46 97.9 98 18 149/74 99 Nasal Cannula 3.0 03/22/16 18:10 98.0 99 17 142/67 99 Nasal Cannula 3.0 03/22/16 17:55 98 19 150/75 99 Nasal Cannula 3.0 03/22/16 17:40 100 17 144/52 99 Nasal Cannula 3.0 03/22/16 17:25 99 17 155/77 99 Nasal Cannula 3.0 03/22/16 17:10 100 14 162/82 99 Simple Mask 8.0 03/22/16 16:55 100 21 161/83 97 Simple Mask 8.0 03/22/16 16:51 95 14 100 03/22/16 16:50 99 11 146/81 97 Simple Mask 8.0 03/22/16 16:45 97.9 97 21 153/76 97 Simple Mask 8.0 03/22/16 12:05 97.6 03/22/16 12:01 97.6 86 21 131/65 97 Nasal Cannula 2.0 03/22/16 11:27 77 135/76 Intake and Output 03/22/16 03/23/16 18:59 06:59 Intake Total 1555 ml 180 ml Output Total 635 ml 700 ml Balance 920 ml -520 ml Intake Oral 180 ml IV Total 1555 ml Output Urine Total 620 ml 700 ml Estimated Blood Loss 15 ml Laboratory Tests 03/23/16 04:45: Urine Eosinophils Occasional 03/23/16 06:10: White Blood Count 8.6, Red Blood Count 2.91L, Hemoglobin 9.1L, Hematocrit 28.2L , Mean Corpuscular Volume 97, Mean Corpuscular Hemoglobin 31.2H, Mean Corpuscular Hemoglobin Concent 32.2, Red Cell Distribution Width 13.4, Platelet Count 207, Mean Platelet Volume 6.6, Neutrophils (%) (Auto) 68.7, Lymphocytes (% ) (Auto) 16.1L, Monocytes (%) (Auto) 9.6, Eosinophils (%) (Auto) 4.8H, Basophils (%) (Auto) 0.7 03/23/16 08:01: Sodium Level 142, Potassium Level 4.8, Chloride Level 107, Carbon Dioxide Level 22, Anion Gap 13, Blood Urea Nitrogen 59H, Creatinine 3.3H, Estimat Glomerular Filtration Rate , Glucose Level 138H, Uric Acid 7.9H, Calcium Level 8.3L, Phosphorus Level 4.4, Magnesium Level 1.8, Total Bilirubin < 0.2, Aspartate Amino Transf (AST/SGOT) 15, Alanine Aminotransferase (ALT/SGPT) 8, Alkaline Phosphatase 56, C-Reactive Protein, Quantitative 18.3H, Pro-B-Type Natriuretic Peptide 2369H, Total Protein 5.6L, Albumin 2.5L, Globulin 3.1, Albumin/Globulin Ratio 0.8L Height (Feet): 5 Height (Inches): 8.00 Weight (Pounds): 150 Objective GENERAL: A well-developed male NAD HEENT: Fairly negative. Extraocular movements are grossly intact. NECK: Supple. LUNGS: Fairly clear. Symmetric. without rhonchi or wheeze CARDIAC: S1 and S2 regular rhythm. Positive S4. No murmurs or rubs. ABDOMEN: Soft and nontender. no HSM EXTREMITIES: No cyanosis or clubbing. dressing over right hip; pain noted NEUROLOGIC: He is otherwise grossly nonfocal. Alert. PATRIA PLEITEZ Mar 23, 2016 08:44
[2016-03-23] MEDS: Docusate 100mg cap ORAL SCH ×4 (08:58→17:00)
[2016-03-23] MEDS: Metoprolol 25mg tab ORAL SCH ×2 (08:59→20:49)
[2016-03-23] MEDS ORDERED: celeBREX 200mg Cap **SURGERY PATIENTS ONLY ORAL SCH (09:00)
[2016-03-23] MEDS: Enoxaparin 30mg Inj SUBQ SCH (09:02)
[2016-03-23] MEDS: cefTRIAXone 1 GM in D5W 55 ML IVPB SCH (11:57)
[2016-03-23 12:00] VITALS: BP 134/69
[2016-03-23] MEDS ORDERED: fentaNYL 100 mcg/2 mL IV ONE (15:30)
[2016-03-23] MEDS ORDERED: Midazolam 2mg/2ml Inj ONE (15:30)
[2016-03-23] MEDS ORDERED: NS Irrig 1000ml ONE (15:30)
[2016-03-23] MEDS ORDERED: Morphine Sulfate 2mg/ml Inj ONE (15:30)
[2016-03-23] MEDS ORDERED: LR 1000ml ONE (15:30)
[2016-03-23] MEDS ORDERED: Propofol 10mg/ml 20ml IV ONE (15:30)
[2016-03-23 16:00] VITALS: BP 130/66
[2016-03-23] MEDS: Norco 7.5mg/325mg tab ORAL PRN (16:10)
--- NOTE | 2016-03-23 16:38 | General Progress Note ---
Assessment/Plan Status: stable Status Narrative Cr lowering Assessment/Plan status: Acute Renal Failure - resolving ? CKD underlying- ( Baseline SCr unknown) In hospital for fall and right hip Fx- s/p surgery HEMATURIA, h/o Bladder vs Prostate Ca, had surgery at [facility] ? UTI Encephalopathy / Dementia Plan: Monitor renal parameter- Antibiotics- Kidney GEO- pending start Lopressor for BP- Rocephin IV Subjective ROS Limited/Unobtainable: No Constitutional: Reports: malaise Allergies: Coded Allergies: No Known Allergies (Verified , 03/19/09) Objective Last 24 Hour Vital Signs Date Time Temp Pulse Resp B/P Pulse Ox O2 Delivery O2 Flow Rate FiO2 03/23/16 16:00 97.3 81 20 130/66 95 Room Air 03/23/16 12:00 98.2 79 18 134/69 97 Room Air 03/23/16 08:59 77 140/76 03/23/16 08:00 97.7 74 18 128/69 98 Nasal Cannula 2.0 03/23/16 07:03 77 18 99 03/23/16 04:00 96.6 77 18 140/76 99 Nasal Cannula 2.0 03/23/16 00:00 97.3 90 18 152/86 98 Nasal Cannula 2.0 03/22/16 20:19 98 149/74 03/22/16 20:00 97.3 107 17 151/86 98 Room Air 03/22/16 18:46 97.9 98 18 149/74 99 Nasal Cannula 3.0 03/22/16 18:10 98.0 99 17 142/67 99 Nasal Cannula 3.0 03/22/16 17:55 98 19 150/75 99 Nasal Cannula 3.0 03/22/16 17:40 100 17 144/52 99 Nasal Cannula 3.0 03/22/16 17:25 99 17 155/77 99 Nasal Cannula 3.0 03/22/16 17:10 100 14 162/82 99 Simple Mask 8.0 03/22/16 16:55 100 21 161/83 97 Simple Mask 8.0 03/22/16 16:51 95 14 100 03/22/16 16:50 99 11 146/81 97 Simple Mask 8.0 03/22/16 16:45 97.9 97 21 153/76 97 Simple Mask 8.0 Intake and Output 03/22/16 03/23/16 19:00 07:00 Intake Total 1555 ml 180 ml Output Total 635 ml 700 ml Balance 920 ml -520 ml Intake Oral 180 ml IV Total 1555 ml Output Urine Total 620 ml 700 ml Estimated Blood Loss 15 ml Laboratory Tests 03/23/16 04:45: Urine Eosinophils Occasional 03/23/16 06:10: White Blood Count 8.6, Red Blood Count 2.91L, Hemoglobin 9.1L, Hematocrit 28.2L , Mean Corpuscular Volume 97, Mean Corpuscular Hemoglobin 31.2H, Mean Corpuscular Hemoglobin Concent 32.2, Red Cell Distribution Width 13.4, Platelet Count 207, Mean Platelet Volume 6.6, Neutrophils (%) (Auto) 68.7, Lymphocytes (% ) (Auto) 16.1L, Monocytes (%) (Auto) 9.6, Eosinophils (%) (Auto) 4.8H, Basophils (%) (Auto) 0.7 03/23/16 08:01: Sodium Level 142, Potassium Level 4.8, Chloride Level 107, Carbon Dioxide Level 22, Anion Gap 13, Blood Urea Nitrogen 59H, Creatinine 3.3H, Estimat Glomerular Filtration Rate , Glucose Level 138H, Uric Acid 7.9H, Calcium Level 8.3L, Phosphorus Level 4.4, Magnesium Level 1.8, Total Bilirubin < 0.2, Aspartate Amino Transf (AST/SGOT) 15, Alanine Aminotransferase (ALT/SGPT) 8, Alkaline Phosphatase 56, C-Reactive Protein, Quantitative 18.3H, Pro-B-Type Natriuretic Peptide 2369H, Total Protein 5.6L, Albumin 2.5L, Globulin 3.1, Albumin/Globulin Ratio 0.8L Height (Feet): 5 Height (Inches): 8.00 Weight (Pounds): 150 General Appearance: no apparent distress Cardiovascular: regular rhythm Respiratory/Chest: lungs clear Abdomen: soft Objective other PE not changed CAITLYN LAKHANI Mar 23, 2016 16:38
[2016-03-23 20:40] VITALS: BP 114/59
[2016-03-23] MEDS: Tamsulosin 0.4mg cap ORAL SCH (20:44)
[2016-03-24] VITALS: BP 137/72
[2016-03-24 04:00] VITALS: BP 132/80
--- NOTE | 2016-03-24 04:17 | Progress Note ---
DATE: 03/23/2016 CARDIOLOGY PROGRESS NOTE SUBJECTIVE: Postoperative day #1 following ORIF of the right hip. The patient is without any shortness of breath. OBJECTIVE: Blood pressure 140/76, pulse 77, and respiratory rate 18. NECK: Supple. LUNGS: Clear. CARDIAC: Regular rhythm and rate. Normal S1 and S2 with a fourth heart sound. ABDOMEN: Soft. EXTREMITIES: With no edema. SKIN: Surgical site is dry. LABORATORY DATA: White count 8.6 and hemoglobin 9.1. BUN 59, creatinine 3.3, potassium 4.8, and bicarbonate 22. Pro-natriuretic peptide is 2300 and albumin 2.5. IMPRESSION: 1. Status post open reduction and internal fixation. 2. Acute on chronic renal failure, slowly improving. 3. Elevated natriuretic peptide assay likely due to renal failure rather than acute congestive heart failure. 4. Hypertensive heart disease and sinus tachycardia improved with beta-adela. PLAN: 1. Continue hydration with caution. 2. Continue and titrate beta-adela. 3. Follow up renal ultrasound. 4. Postop care. 5. Antibiotics for possible urinary infection. 6. Close monitoring of volume status and cardiorenal clinical parameters. Hardik Monae M.D. DR: EFREN JOB#: [id number] CC:
[2016-03-24 07:35] LABS: BASOPHILS % (AUTO) 0.9 % (0.0-2.0); EOSINOPHILS % (AUTO) 5.7 % (0.0-3.0); LYMPHOCYTES % (AUTO) 23.5 % (20.0-45.0); MEAN CORPUSCULAR HEMOGLOBIN 30.7 PG (27.0-31.0); MEAN CORPUSCULAR HGB CONC 31.7 G/DL (32.0-36.0); MEAN CORPUSCULAR VOLUME 97 FL (80-99); NEUTROPHILS % (AUTO) 61.8 % (45.0-75.0); PLATELET COUNT 265 K/UL (150-450); RED BLOOD COUNT 3.23 M/UL (4.70-6.10); RED CELL DISTRIBUTION WIDTH 13.7 % (11.6-14.8); WHITE BLOOD COUNT 7.3 K/UL (4.8-10.8)
--- NOTE | 2016-03-24 07:45 | General Progress Note ---
Assessment/Plan Assessment/Plan IMPRESSION: 1. Status post non syncopal fall. 2. Right hip fracture. 3. Evidence of chronic renal failure. 4. Evidence of anemia. 5. Advanced age debility. 6. s/p hip ORIF PLAN SNF discharge pending try ARU as well DVT prophylaxis hydration and monitor renal function renal function improving overall pain medications otherwise same follow up labs and monitor impression, plan, and exam edited and reviewed in detail care discussed with RN Subjective Allergies: Coded Allergies: No Known Allergies (Verified , 03/19/09) Subjective comfortable post op placement in process Objective Last 24 Hour Vital Signs Date Time Temp Pulse Resp B/P Pulse Ox O2 Delivery O2 Flow Rate FiO2 03/24/16 04:00 96.9 76 18 132/80 96 Room Air 03/24/16 00:00 97.7 84 18 137/72 97 Room Air 03/23/16 20:49 76 114/59 03/23/16 20:40 98.2 76 20 114/59 96 Room Air 03/23/16 17:09 98.2 03/23/16 16:00 97.3 81 20 130/66 95 Room Air 03/23/16 12:00 98.2 79 18 134/69 97 Room Air 03/23/16 08:59 77 140/76 03/23/16 08:00 97.7 74 18 128/69 98 Nasal Cannula 2.0 Intake and Output 03/23/16 03/24/16 19:00 07:00 Intake Total 850 ml 740 ml Output Total 550 ml 1000 ml Balance 300 ml -260 ml Intake Oral 700 ml 740 ml IV Total 150 ml Output Urine Total 550 ml 1000 ml # Voids 4 Laboratory Tests 03/23/16 08:01: Sodium Level 142, Potassium Level 4.8, Chloride Level 107, Carbon Dioxide Level 22, Anion Gap 13, Blood Urea Nitrogen 59H, Creatinine 3.3H, Estimat Glomerular Filtration Rate , Glucose Level 138H, Uric Acid 7.9H, Calcium Level 8.3L, Phosphorus Level 4.4, Magnesium Level 1.8, Total Bilirubin < 0.2, Aspartate Amino Transf (AST/SGOT) 15, Alanine Aminotransferase (ALT/SGPT) 8, Alkaline Phosphatase 56, C-Reactive Protein, Quantitative 18.3H, Pro-B-Type Natriuretic Peptide 2369H, Total Protein 5.6L, Albumin 2.5L, Globulin 3.1, Albumin/Globulin Ratio 0.8L 03/24/16 05:20: Sodium Level [Pending], Potassium Level [Pending], Chloride Level [Pending], Carbon Dioxide Level [Pending], Blood Urea Nitrogen [Pending], Creatinine [ Pending], Estimat Glomerular Filtration Rate [Pending], Glucose Level [Pending] , Uric Acid [Pending], Calcium Level [Pending], Phosphorus Level [Pending], Magnesium Level [Pending], Total Bilirubin [Pending], Aspartate Amino Transf ( AST/SGOT) [Pending], Alanine Aminotransferase (ALT/SGPT) [Pending], Alkaline Phosphatase [Pending], C-Reactive Protein, Quantitative [Pending], Pro-B-Type Natriuretic Peptide [Pending], Total Protein [Pending], Albumin [Pending], Globulin [Pending], White Blood Count 7.3, Red Blood Count 3.23L, Hemoglobin 9.9L, Hematocrit 31.2L, Mean Corpuscular Volume 97, Mean Corpuscular Hemoglobin 30.7, Mean Corpuscular Hemoglobin Concent 31.7L, Red Cell Distribution Width 13.7, Platelet Count 265, Mean Platelet Volume 6.0L, Neutrophils (%) (Auto) 61.8 , Lymphocytes (%) (Auto) 23.5, Monocytes (%) (Auto) 8.0, Eosinophils (%) (Auto) 5.7H, Basophils (%) (Auto) 0.9, Iron Level [Pending], Unsaturated Iron Binding [ Pending], Ferritin [Pending], Vitamin B12 Level [Pending], Folate [Pending] Height (Feet): 5 Height (Inches): 8.00 Weight (Pounds): 150 Objective GENERAL: A well-developed male NAD HEENT: Fairly negative. Extraocular movements are grossly intact. NECK: Supple. LUNGS: Fairly clear. Symmetric. without rhonchi or wheeze CARDIAC: S1 and S2 regular rhythm. Positive S4. No murmurs or rubs. ABDOMEN: Soft and nontender. no HSM EXTREMITIES: No cyanosis or clubbing. dressing over right hip; pain noted NEUROLOGIC: He is otherwise grossly nonfocal. Alert. PATRIA PLEITEZ Mar 24, 2016 07:45
[2016-03-24 07:48] LABS: ALANINE AMINOTRANSFERASE 6 U/L (3-41); ALBUMIN/GLOBULIN RATIO 0.8 (1.0-2.7); ANION GAP 16 (5-15); ASPARTATE AMINO TRANSFERASE 17 U/L (5-40); CALCIUM 8.6 mg/dL (8.6-10.2); CARBON DIOXIDE 19 mEQ/L (20-30); CHLORIDE 109 mEQ/L (98-107); CREATININE 3.6 mg/dL (0.7-1.2); CRP QUANT 16.1 mg/dL (< 0.5); HEMOLYSIS 2; MAGNESIUM 1.9 mg/dL (1.7-2.5); POTASSIUM 5.4 mEQ/L (3.4-4.9); SODIUM 144 mEQ/L (135-145); TOTAL PROTEIN 6.3 g/dL (6.6-8.7); URIC ACID 7.9 mg/dL (3.0-7.5)
[2016-03-24 07:53] LABS: HEMOLYSIS 1; IRON 22 ug/dL (59-158); TOTAL IRON BINDING CAPACITY 157 ug/dL (250-400)
[2016-03-24 08:00] VITALS: BP 149/82
[2016-03-24 08:02] LABS: FERRITIN 265 ng/mL (10-230)
[2016-03-24] MEDS ORDERED: Sodium Polystyrene Sulfonate 15gm Powder ORAL ONE (09:00)
[2016-03-24] MEDS: Docusate 100mg cap ORAL SCH ×3 (09:17→16:53)
[2016-03-24] MEDS: Metoprolol 25mg tab ORAL SCH ×2 (09:18→21:00)
[2016-03-24] MEDS: Enoxaparin 30mg Inj SUBQ SCH (09:19)
[2016-03-24] MEDS: cefTRIAXone 1 GM in D5W 55 ML IVPB SCH (11:28)
[2016-03-24] MEDS: Norco 7.5mg/325mg tab ORAL PRN ×3 (11:28→22:29)
[2016-03-24 12:00] VITALS: BP 127/85
--- NOTE | 2016-03-24 12:00 | General Progress Note ---
Assessment/Plan Status: unchanged Assessment/Plan status: Acute Renal Failure - resolving ? CKD underlying- ( Baseline SCr unknown) In hospital for fall and right hip Fx- s/p surgery HEMATURIA, h/o Bladder vs Prostate Ca, had surgery at [facility] ? UTI Encephalopathy / Dementia Plan: Monitor renal parameter- Antibiotics- Kidney GEO- pending Lopressor for BP- Rocephin IV add allopurinol Subjective ROS Limited/Unobtainable: No Constitutional: Reports: malaise, weakness Allergies: Coded Allergies: No Known Allergies (Verified , 03/19/09) Objective Last 24 Hour Vital Signs Date Time Temp Pulse Resp B/P Pulse Ox O2 Delivery O2 Flow Rate FiO2 03/24/16 09:18 87 149/82 03/24/16 08:00 97.7 87 20 149/82 97 Room Air 03/24/16 04:00 96.9 76 18 132/80 96 Room Air 03/24/16 00:00 97.7 84 18 137/72 97 Room Air 03/23/16 20:49 76 114/59 03/23/16 20:40 98.2 76 20 114/59 96 Room Air 03/23/16 17:09 98.2 03/23/16 16:00 97.3 81 20 130/66 95 Room Air 03/23/16 12:00 98.2 79 18 134/69 97 Room Air Intake and Output 03/23/16 03/24/16 19:00 07:00 Intake Total 850 ml 740 ml Output Total 550 ml 1000 ml Balance 300 ml -260 ml Intake Oral 700 ml 740 ml IV Total 150 ml Output Urine Total 550 ml 1000 ml # Voids 4 Laboratory Tests 03/24/16 05:20: White Blood Count 7.3, Red Blood Count 3.23L, Hemoglobin 9.9L, Hematocrit 31.2L , Mean Corpuscular Volume 97, Mean Corpuscular Hemoglobin 30.7, Mean Corpuscular Hemoglobin Concent 31.7L, Red Cell Distribution Width 13.7, Platelet Count 265, Mean Platelet Volume 6.0L, Neutrophils (%) (Auto) 61.8, Lymphocytes (%) (Auto) 23.5, Monocytes (%) (Auto) 8.0, Eosinophils (%) (Auto) 5.7H, Basophils (%) (Auto) 0.9, Sodium Level 144, Potassium Level 5.4H, Chloride Level 109H, Carbon Dioxide Level 19L, Anion Gap 16H, Blood Urea Nitrogen 59H, Creatinine 3.6H, Estimat Glomerular Filtration Rate , Glucose Level 112H, Uric Acid 7.9H, Calcium Level 8.6, Phosphorus Level 4.0, Magnesium Level 1.9, Iron Level 22L, Total Iron Binding Capacity 157L, Percent Iron Saturation 14L, Unsaturated Iron Binding 135, Ferritin 265H, Total Bilirubin 0.2 , Aspartate Amino Transf (AST/SGOT) 17, Alanine Aminotransferase (ALT/SGPT) 6, Alkaline Phosphatase 72, C-Reactive Protein, Quantitative 16.1H, Pro-B-Type Natriuretic Peptide 3309H, Total Protein 6.3L, Albumin 2.9L, Globulin 3.4, Albumin/Globulin Ratio 0.8L, Vitamin B12 Level 486, Folate [Pending] Height (Feet): 5 Height (Inches): 8.00 Weight (Pounds): 150 General Appearance: no apparent distress, confused Objective other PE not changed CAITLYN LAKHANI Mar 24, 2016 12:00
[2016-03-24] MEDS: Allopurinol 100mg Tab ORAL SCH (13:22)
--- NOTE | 2016-03-24 13:45 | Diagnostic Imaging Report ---
Indication: POST-OP right hip fracture Technique: One view the pelvis Comparison: 03/20/2016 Findings: Postoperative image document surgical repair of previously demonstrated right femoral neck fracture with 3 surgical nails. Satisfactory anatomic alignment. There is a Tucker catheter in place. Joint spaces are preserved Impression: Postoperative right hip, as described. No unusual features
--- NOTE | 2016-03-24 13:45 | Diagnostic Imaging Report ---
Indication: Fracture, intraoperative Technique: Digital intraoperative images Comparison: 03/20/2016 Findings: Intraoperative images document placement of 3 surgical nails for repair of previously reported femoral neck fracture Impression: Intraoperative imaging, as described
[2016-03-24 16:00] VITALS: BP 119/77
[2016-03-24 19:00] VITALS: BP 109/64
--- NOTE | 2016-03-24 21:47 | Consultation ---
DATE OF CONSULTATION: 03/24/2016 CONSULTING PHYSICIAN: Melo Sanchez M.D. REFERRING PHYSICIAN: Gustavo Lopez M.D. REASON FOR CONSULTATION: For evaluation of possible bladder mass. HISTORY OF PRESENT ILLNESS: This is an 89-year-old male. He was admitted to the hospital because of a fall with evidence of right hip fracture. He is now two days status post right hip ORIF, close reduction, and percutaneous pinning. He apparently had a Tucker catheter at some point that had been removed. He is voiding. There was some mild hematuria noted. There is a questionable history of previous bladder or prostate cancer. Urology evaluation is requested. The patient also has chronic renal insufficiency. PAST MEDICAL HISTORY: Significant for above and other conditions include hypertension. PAST SURGICAL HISTORY: As above, also question of bladder surgery. MEDICATIONS: Current medications here in the hospital, the patient is on Zyloprim, Lovenox, Lopressor, Colace, Dilaudid, Lefors, Rocephin, Protonix, Flomax, Catapres, and Ambien. ALLERGIES: No known drug allergies. SOCIAL HISTORY: He is apparently homeless. FAMILY HISTORY: Noncontributory. REVIEW OF SYSTEMS: As above. He has some urinary difficulty. PHYSICAL EXAMINATION: GENERAL: This is an elderly male, in no acute distress. VITAL SIGNS: Temperature is 97.7 degrees, blood pressure 149/82, pulse 87, and respirations 20. HEENT: Normocephalic. NECK: Supple. ABDOMEN: Soft. BACK: No CVA tenderness. GENITOURINARY: . RECTAL: Reveals a firm prostate about 40 g. EXTREMITIES: No clubbing or cyanosis. LABORATORY DATA: His BUN is 59, creatinine 3.6, creatinine was up to 5.1 at the time of admission. His baseline creatinine is unknown. Potassium is 5.4. White count 7.3, hemoglobin 9.9, and platelets 265,000. UA showed 4+ protein, too numerous to count RBCs, 10 to 15 WBCs, this may have been with the Tucker. DIAGNOSTIC IMAGING STUDIES: The patient had a pelvic CT scan, which is a noncontrast study. There was mention of right femoral neck fracture and also mention of some prominence of the prostate. IMPRESSION: 1. History of questionable bladder mass, possibly bladder cancer. 2. Questionable history of prostate cancer. 3. Benign prostatic hypertrophy. 4. Lower urinary tract symptoms. 5. Hematuria. 6. Pyuria. 7. Proteinuria. 8. Renal insufficiency, which is acute on chronic. PLAN AND DISCUSSION: Again as noted above, the patient does have some questionable history of bladder versus prostate cancer. Unfortunately, there are no records available and he is a poor historian. He did have a TSH checked here in the hospital, which came back at 4.3, which is within the normal range for him. He did have some hematuria, which may have been secondary to the Tucker. At some point, he will need to have cystoscopy to evaluate his lower urinary tract. He does have renal insufficiency, which I believe is acute on chronic and we will consider obtaining a renal ultrasound for further evaluation. His renal function will be monitored closely. He is to continue with Flomax as ordered and we will also add finasteride 5 mg daily. I will follow the patient and any other recommendations will be forthcoming. Thank you, Dr. Lopez, for asking me to see this patient in consultation. Melo Sanchez M.D. DR: OMAR JOB#: [id number] CC: Gustavo Lopez M.D.; Fax#: [phone] Simental M.D.Mark Ganjianpour, M.D.; Fax#: [phone]
[2016-03-24] MEDS: Tamsulosin 0.4mg cap ORAL SCH (22:29)
[2016-03-25 00:50] VITALS: BP 157/82
[2016-03-25 04:00] VITALS: BP 147/86
[2016-03-25] MEDS: Norco 7.5mg/325mg tab ORAL PRN ×2 (05:41→20:11)
[2016-03-25 07:23] LABS: EOSINOPHILS % (AUTO) 8.2 % (0.0-3.0); LYMPHOCYTES % (AUTO) 28.4 % (20.0-45.0); MEAN CORPUSCULAR HEMOGLOBIN 30.7 PG (27.0-31.0); MEAN CORPUSCULAR HGB CONC 32.1 G/DL (32.0-36.0); MEAN CORPUSCULAR VOLUME 96 FL (80-99); MEAN PLATELET VOLUME 6.3 FL (6.5-10.1); MONOCYTES % (AUTO) 10.5 % (1.0-10.0); NEUTROPHILS % (AUTO) 51.8 % (45.0-75.0); PLATELET COUNT 256 K/UL (150-450); RED BLOOD COUNT 2.99 M/UL (4.70-6.10); RED CELL DISTRIBUTION WIDTH 13.6 % (11.6-14.8); WHITE BLOOD COUNT 5.6 K/UL (4.8-10.8)
[2016-03-25 07:45] LABS: ALANINE AMINOTRANSFERASE 5 U/L (3-41); ALBUMIN/GLOBULIN RATIO 0.8 (1.0-2.7); ANION GAP 15 (5-15); ASPARTATE AMINO TRANSFERASE 14 U/L (5-40); CALCIUM 8.3 mg/dL (8.6-10.2); CARBON DIOXIDE 21 mEQ/L (20-30); CHLORIDE 106 mEQ/L (98-107); CREATININE 3.5 mg/dL (0.7-1.2); HEMOLYSIS 3; MAGNESIUM 1.8 mg/dL (1.7-2.5); PHOSPHORUS 4.6 mg/dL (2.5-4.8); POTASSIUM 4.9 mEQ/L (3.4-4.9); SODIUM 142 mEQ/L (135-145); URIC ACID 6.9 mg/dL (3.0-7.5)
[2016-03-25 08:00] VITALS: BP 147/80
--- NOTE | 2016-03-25 08:53 | General Progress Note ---
Assessment/Plan Assessment/Plan IMPRESSION: 1. Status post non syncopal fall. 2. Right hip fracture. 3. Evidence of chronic renal failure. 4. Evidence of anemia. 5. Advanced age debility. 6. s/p hip ORIF 7. bladder mass PLAN SNF discharge pending unable to place DVT prophylaxis hydration and monitor renal function; overall better all appreciated and reviewed pain medications otherwise same follow up labs and monitor impression, plan, and exam edited and reviewed in detail care discussed with RN Subjective Allergies: Coded Allergies: No Known Allergies (Verified , 03/19/09) Subjective comfortable all appreciated awaiting placement Objective Last 24 Hour Vital Signs Date Time Temp Pulse Resp B/P Pulse Ox O2 Delivery O2 Flow Rate FiO2 03/25/16 04:00 98.1 82 18 147/86 98 Nasal Cannula 03/25/16 00:50 97.7 86 21 157/82 98 Room Air 03/24/16 21:00 92 109/64 03/24/16 19:00 97.5 92 20 109/64 97 Room Air 03/24/16 19:00 Room Air 03/24/16 17:48 97.3 03/24/16 16:00 97.3 100 20 119/77 97 Room Air 03/24/16 12:00 97.5 94 18 127/85 100 Nasal Cannula 2.0 03/24/16 09:18 87 149/82 Intake and Output 03/24/16 03/25/16 19:00 07:00 Intake Total 500 ml 240 ml Output Total 300 ml 275 ml Balance 200 ml -35 ml Intake Oral 500 ml 240 ml Output Urine Total 300 ml 275 ml # Voids 1 6 Laboratory Tests 03/25/16 05:10: White Blood Count 5.6, Red Blood Count 2.99L, Hemoglobin 9.2L, Hematocrit 28.6L , Mean Corpuscular Volume 96, Mean Corpuscular Hemoglobin 30.7, Mean Corpuscular Hemoglobin Concent 32.1, Red Cell Distribution Width 13.6, Platelet Count 256, Mean Platelet Volume 6.3L, Neutrophils (%) (Auto) 51.8, Lymphocytes ( %) (Auto) 28.4, Monocytes (%) (Auto) 10.5H, Eosinophils (%) (Auto) 8.2H, Basophils (%) (Auto) 1.0, Sodium Level 142, Potassium Level 4.9, Chloride Level 106, Carbon Dioxide Level 21, Anion Gap 15, Blood Urea Nitrogen 57H, Creatinine 3.5H, Estimat Glomerular Filtration Rate , Glucose Level 109H, Uric Acid 6.9, Calcium Level 8.3L, Phosphorus Level 4.6, Magnesium Level 1.8, Total Bilirubin 0.2, Aspartate Amino Transf (AST/SGOT) 14, Alanine Aminotransferase (ALT/SGPT) 5 , Alkaline Phosphatase 48, C-Reactive Protein, Quantitative 10.0H, Pro-B-Type Natriuretic Peptide 2424H, Total Protein 6.0L, Albumin 2.7L, Globulin 3.3, Albumin/Globulin Ratio 0.8L Height (Feet): 5 Height (Inches): 8.00 Weight (Pounds): 150 Objective GENERAL: A well-developed male NAD HEENT: Fairly negative. Extraocular movements are grossly intact. NECK: Supple. LUNGS: Fairly clear. Symmetric. without rhonchi or wheeze CARDIAC: S1 and S2 regular rhythm. Positive S4. No murmurs or rubs. ABDOMEN: Soft and nontender. no HSM EXTREMITIES: No cyanosis or clubbing. dressing over right hip; pain noted NEUROLOGIC: He is otherwise grossly nonfocal. Alert. PATRIA PLEITEZ Mar 25, 2016 08:53
[2016-03-25] MEDS: Metoprolol 25mg tab ORAL SCH ×2 (08:54→20:11)
[2016-03-25] MEDS: Allopurinol 100mg Tab ORAL SCH (08:54)
[2016-03-25] MEDS: Docusate 100mg cap ORAL SCH ×3 (08:54→17:04)
[2016-03-25] MEDS: Enoxaparin 30mg Inj SUBQ SCH (08:57)
[2016-03-25] MEDS: cefTRIAXone 1 GM in D5W 55 ML IVPB SCH (10:15)
[2016-03-25 12:00] VITALS: BP 138/73
--- NOTE | 2016-03-25 12:27 | General Progress Note ---
Assessment/Plan Status: stable Status Narrative Cr 3.5 Assessment/Plan status: Acute Renal Failure - resolving ? CKD underlying- ( Baseline SCr unknown) In hospital for fall and right hip Fx- s/p surgery HEMATURIA, h/o Bladder vs Prostate Ca, had surgery at [facility] ? UTI Encephalopathy / Dementia Plan: Monitor renal parameter- Antibiotics- Kidney GEO- pending Lopressor for high BP- Rocephin IV add allopurinol Meds reviewed Subjective ROS Limited/Unobtainable: No Constitutional: Reports: malaise Allergies: Coded Allergies: No Known Allergies (Verified , 03/19/09) Objective Last 24 Hour Vital Signs Date Time Temp Pulse Resp B/P Pulse Ox O2 Delivery O2 Flow Rate FiO2 03/25/16 09:05 Room Air 03/25/16 08:54 82 147/86 03/25/16 08:00 97.2 18 147/80 97 Room Air 03/25/16 04:00 98.1 82 18 147/86 98 Nasal Cannula 03/25/16 00:50 97.7 86 21 157/82 98 Room Air 03/24/16 21:00 92 109/64 03/24/16 19:00 97.5 92 20 109/64 97 Room Air 03/24/16 19:00 Room Air 03/24/16 17:48 97.3 03/24/16 16:00 97.3 100 20 119/77 97 Room Air Intake and Output 03/24/16 03/25/16 19:00 07:00 Intake Total 500 ml 240 ml Output Total 300 ml 275 ml Balance 200 ml -35 ml Intake Oral 500 ml 240 ml Output Urine Total 300 ml 275 ml # Voids 1 6 Laboratory Tests 03/25/16 05:10: White Blood Count 5.6, Red Blood Count 2.99L, Hemoglobin 9.2L, Hematocrit 28.6L , Mean Corpuscular Volume 96, Mean Corpuscular Hemoglobin 30.7, Mean Corpuscular Hemoglobin Concent 32.1, Red Cell Distribution Width 13.6, Platelet Count 256, Mean Platelet Volume 6.3L, Neutrophils (%) (Auto) 51.8, Lymphocytes ( %) (Auto) 28.4, Monocytes (%) (Auto) 10.5H, Eosinophils (%) (Auto) 8.2H, Basophils (%) (Auto) 1.0, Sodium Level 142, Potassium Level 4.9, Chloride Level 106, Carbon Dioxide Level 21, Anion Gap 15, Blood Urea Nitrogen 57H, Creatinine 3.5H, Estimat Glomerular Filtration Rate , Glucose Level 109H, Uric Acid 6.9, Calcium Level 8.3L, Phosphorus Level 4.6, Magnesium Level 1.8, Total Bilirubin 0.2, Aspartate Amino Transf (AST/SGOT) 14, Alanine Aminotransferase (ALT/SGPT) 5 , Alkaline Phosphatase 48, C-Reactive Protein, Quantitative 10.0H, Pro-B-Type Natriuretic Peptide 2424H, Total Protein 6.0L, Albumin 2.7L, Globulin 3.3, Albumin/Globulin Ratio 0.8L Height (Feet): 5 Height (Inches): 8.00 Weight (Pounds): 150 General Appearance: no apparent distress, lethargic Objective other PE not changed CAITLYN LAKHANI Mar 25, 2016 12:27
--- NOTE | 2016-03-25 13:15 | Urology Progress Note ---
Assessment/Plan Assessment/Plan 1. History of questionable bladder mass, possibly bladder cancer. 2. Questionable history of prostate cancer. 3. Benign prostatic hypertrophy. 4. Lower urinary tract symptoms. 5. Hematuria. 6. Pyuria. 7. Proteinuria. 8. Renal insufficiency, which is acute on chronic. monitor clinically monitor renal fxn flomax and proscar consider renal u/s cysto later Subjective Allergies: Coded Allergies: No Known Allergies (Verified , 03/19/09) Subjective all noted, voiding, urine reported clearing Objective Last 24 Hour Vital Signs Date Time Temp Pulse Resp B/P Pulse Ox O2 Delivery O2 Flow Rate FiO2 03/25/16 13:13 82 147/86 03/25/16 09:05 Room Air 03/25/16 08:54 82 147/86 03/25/16 08:00 97.2 18 147/80 97 Room Air 03/25/16 04:00 98.1 82 18 147/86 98 Nasal Cannula 03/25/16 00:50 97.7 86 21 157/82 98 Room Air 03/24/16 21:00 92 109/64 03/24/16 19:00 97.5 92 20 109/64 97 Room Air 03/24/16 19:00 Room Air 03/24/16 17:48 97.3 03/24/16 16:00 97.3 100 20 119/77 97 Room Air Intake and Output 03/24/16 03/25/16 19:00 07:00 Intake Total 500 ml 240 ml Output Total 300 ml 275 ml Balance 200 ml -35 ml Intake Oral 500 ml 240 ml Output Urine Total 300 ml 275 ml # Voids 1 6 Microbiology Date/Time Source Procedure Growth Status 03/20/16 22:35 Nasal Nares MRSA Culture - Final NO METHICILLIN RESISTANT STAPH AUREUS... Complete 03/22/16 12:00 Indwelling Cath Urine Culture - Final NO GROWTH AFTER 48 HOURS Complete 03/20/16 22:35 Rectum VRE Culture - Final Enterococcus Faecium - Vre Complete Current Medications Medications (Trade) Dose Ordered Sig/Silvia Route PRN Reason Start Time Stop Time Status Last Admin Dose Admin Acetaminophen (Tylenol) 650 mg Q4H PRN ORAL Mild Pain (Pain Scale 1-3) 03/22/16 15:45 04/21/16 15:44 Acetaminophen/ Hydrocodone Bitart ([place] 7.5/325) 1 ea Q4H PRN ORAL Moderate Pain (Pain Scale 4-6) 03/22/16 15:45 03/29/16 15:44 03/25/16 05:41 Allopurinol (Zyloprim) 200 mg DAILY ORAL 03/24/16 13:00 04/23/16 12:59 03/25/16 08:54 Amlodipine Besylate (Norvasc) 2.5 mg DAILY ORAL 03/25/16 13:00 04/24/16 12:59 03/25/16 13:13 Bisacodyl (Dulcolax) 10 mg Q12H PRN RECTAL Constipation 03/22/16 15:45 04/21/16 15:44 Ceftriaxone Sodium/Dextrose (Rocephin/D5W) 55 ml @ 110 mls/hr Q24H IVPB 03/22/16 11:00 03/29/16 10:59 03/25/16 10:15 Clonidine HCl (Catapres) 0.1 mg Q4H PRN ORAL bp over 170 syst 03/21/16 12:45 04/20/16 12:44 03/22/16 00:09 Docusate Sodium (Colace) 100 mg THREE TIMES A DAY ORAL 03/22/16 21:00 04/21/16 20:59 03/25/16 12:18 Enoxaparin Sodium (Lovenox) 30 mg DAILY SUBQ 03/23/16 09:00 04/02/16 08:59 03/25/16 08:57 Finasteride (Proscar) 5 mg DAILY ORAL 03/24/16 13:00 04/23/16 12:59 03/25/16 08:53 Hydromorphone HCl (Dilaudid) 1 mg Q4H PRN SUBQ Mild Pain (Pain Scale 1-3) 03/22/16 15:45 03/29/16 15:44 Metoprolol Tartrate (Lopressor) 50 mg Q12HR ORAL 03/23/16 09:00 04/22/16 08:59 03/25/16 08:54 Pantoprazole (Protonix) 40 mg EVERY 12 HOURS ORAL 03/21/16 21:00 04/20/16 20:59 03/25/16 08:53 Tamsulosin HCl 0.4 mg 0.4 mg BEDTIME ORAL 03/21/16 21:00 04/20/16 20:59 03/24/16 22:29 Zolpidem Tartrate (Ambien) 10 mg HSPRN PRN ORAL Insomnia 03/21/16 07:00 04/20/16 06:59 Laboratory Tests 03/25/16 05:10: White Blood Count 5.6, Red Blood Count 2.99L, Hemoglobin 9.2L, Hematocrit 28.6L , Mean Corpuscular Volume 96, Mean Corpuscular Hemoglobin 30.7, Mean Corpuscular Hemoglobin Concent 32.1, Red Cell Distribution Width 13.6, Platelet Count 256, Mean Platelet Volume 6.3L, Neutrophils (%) (Auto) 51.8, Lymphocytes ( %) (Auto) 28.4, Monocytes (%) (Auto) 10.5H, Eosinophils (%) (Auto) 8.2H, Basophils (%) (Auto) 1.0, Sodium Level 142, Potassium Level 4.9, Chloride Level 106, Carbon Dioxide Level 21, Anion Gap 15, Blood Urea Nitrogen 57H, Creatinine 3.5H, Estimat Glomerular Filtration Rate , Glucose Level 109H, Uric Acid 6.9, Calcium Level 8.3L, Phosphorus Level 4.6, Magnesium Level 1.8, Total Bilirubin 0.2, Aspartate Amino Transf (AST/SGOT) 14, Alanine Aminotransferase (ALT/SGPT) 5 , Alkaline Phosphatase 48, C-Reactive Protein, Quantitative 10.0H, Pro-B-Type Natriuretic Peptide 2424H, Total Protein 6.0L, Albumin 2.7L, Globulin 3.3, Albumin/Globulin Ratio 0.8L Height (Feet): 5 Height (Inches): 8.00 Weight (Pounds): 150 Objective exam stable MARCI COLEMAN Mar 25, 2016 13:15
[2016-03-25 16:00] VITALS: BP 143/75
[2016-03-25 20:00] VITALS: BP 136/69
[2016-03-25] MEDS: Tamsulosin 0.4mg cap ORAL SCH (20:11)
--- NOTE | 2016-03-25 21:27 | Progress Note ---
DATE: 03/25/2016 CARDIOLOGY PROGRESS NOTE SUBJECTIVE: The patient's pain is controlled. He is afebrile. No shortness of breath noted. OBJECTIVE: VITAL SIGNS: Blood pressure 132/80, pulse 76, respirations 18, and afebrile. SKIN: Wounds at surgical site dry. NECK: Supple. LUNGS: Clear. CARDIAC: Regular rhythm and rate. Normal S1 and S2 with a fourth heart sound. ABDOMEN: Nontender. LABORATORY DATA: White count 7.3 and hemoglobin 9.9. Sodium 144, potassium 5.4, bicarbonate 19, BUN 59, and creatinine 3.6. Pro-natriuretic peptide is 3300. IMPRESSION: 1. Acute on chronic diastolic congestive heart failure. 2. Acute on chronic renal failure. 3. Hyperkalemia. 4. Metabolic acidosis. 5. Postoperative anemia. 6. Status post open reduction and internal fixation. 7. Hypertensive heart disease. PLAN: 1. Continue beta-adela. 2. Monitor cardiorenal parameters and volume status. 3. Maintenance hydration at this time. 4. DVT prophylaxis. Hardik Monae M.D. DR: EFREN JOB#: [id number] CC:
--- NOTE | 2016-03-25 21:27 | Progress Note ---
DATE: 03/25/2016 CARDIOLOGY PROGRESS NOTE SUBJECTIVE: More alert. Status post right open reduction and internal fixation. No shortness of breath. OBJECTIVE: VITAL SIGNS: Blood pressure 147/86, pulse 82, and respirations 18. NECK: Supple. LUNGS: Clear. CARDIAC: Regular rhythm and rate. Normal S1 and S2. There is a fourth heart sound. ABDOMEN: Soft. EXTREMITIES: No edema. Wound surgical site clean and dry. LABORATORY DATA: White count 5.6 and hemoglobin 9.2. BUN 57, creatinine 3.5, and potassium is 4.9. IMPRESSION: 1. Chronic kidney disease. 2. Hypertensive heart disease. 3. Hip fracture, status post right open reduction and internal fixation. 4. Elevated natriuretic peptide assay, likely due to chronic renal disease. 5. Diastolic congestive heart failure, clinically compensated. PLAN: 1. Encourage oral intake. 2. Continue beta-blockade. 3. DVT prophylaxis. 4. Titrate amlodipine for blood pressure control. 5. No role for diuresis at this time. Hardik Monae M.D. DR: LORENZO JOB#: [id number] CC:
[2016-03-25 23:10] LABS: TESTOSTERONE TOTAL (LC/MS/MS) 91 ng/dL (.)
[2016-03-26] VITALS: BP 142/87
[2016-03-26 04:00] VITALS: BP 144/72
[2016-03-26 08:05] VITALS: BP 151/71
[2016-03-26] MEDS: Docusate 100mg cap ORAL SCH ×2 (08:59→12:05)
[2016-03-26] MEDS: Metoprolol 25mg tab ORAL SCH (08:59)
[2016-03-26] MEDS: Allopurinol 100mg Tab ORAL SCH (09:00)
[2016-03-26] MEDS: Enoxaparin 30mg Inj SUBQ SCH (09:02)
--- NOTE | 2016-03-26 09:44 | Urology Progress Note ---
Assessment/Plan Assessment/Plan 1. History of questionable bladder mass, possibly bladder cancer. 2. Questionable history of prostate cancer. 3. Benign prostatic hypertrophy. 4. Lower urinary tract symptoms. 5. Hematuria. 6. Pyuria. 7. Proteinuria. 8. Renal insufficiency, which is acute on chronic. monitor clinically monitor renal fxn flomax and proscar consider renal u/s consider check PVR cysto later, can be done as outpt can check urine cytology as outpt Subjective Allergies: Coded Allergies: No Known Allergies (Verified , 03/19/09) Subjective all noted, voiding Objective Last 24 Hour Vital Signs Date Time Temp Pulse Resp B/P Pulse Ox O2 Delivery O2 Flow Rate FiO2 03/26/16 08:59 73 151/71 03/26/16 08:59 73 151/71 03/26/16 08:05 98.1 73 20 151/71 99 Room Air 03/26/16 04:00 97.7 67 18 144/72 97 Room Air 03/26/16 00:00 97.4 68 17 142/87 99 Room Air 03/25/16 21:10 97.9 03/25/16 20:11 65 136/69 03/25/16 20:03 Room Air 03/25/16 20:00 97.9 65 19 136/69 95 Room Air 03/25/16 16:00 97.9 75 19 143/75 Room Air 03/25/16 13:13 82 147/86 03/25/16 12:00 97.5 75 18 138/73 99 Room Air Intake and Output 03/25/16 03/26/16 19:00 07:00 Intake Total 520 ml 360 ml Output Total 300 ml 400 ml Balance 220 ml -40 ml Intake Oral 520 ml 360 ml Output Urine Total 300 ml 400 ml # Voids 2 Microbiology Date/Time Source Procedure Growth Status 03/20/16 22:35 Nasal Nares MRSA Culture - Final NO METHICILLIN RESISTANT STAPH AUREUS... Complete 03/22/16 12:00 Indwelling Cath Urine Culture - Final NO GROWTH AFTER 48 HOURS Complete 03/20/16 22:35 Rectum VRE Culture - Final Enterococcus Faecium - Vre Complete Current Medications Medications (Trade) Dose Ordered Sig/Silvia Route PRN Reason Start Time Stop Time Status Last Admin Dose Admin Acetaminophen (Tylenol) 650 mg Q4H PRN ORAL Mild Pain (Pain Scale 1-3) 03/22/16 15:45 04/21/16 15:44 Acetaminophen/ Hydrocodone Bitart ([place] 7.5/325) 1 ea Q4H PRN ORAL Moderate Pain (Pain Scale 4-6) 03/22/16 15:45 03/29/16 15:44 03/25/16 20:11 Allopurinol (Zyloprim) 200 mg DAILY ORAL 03/24/16 13:00 04/23/16 12:59 03/26/16 09:00 Amlodipine Besylate (Norvasc) 2.5 mg DAILY ORAL 03/25/16 13:00 04/24/16 12:59 03/26/16 08:59 Bisacodyl (Dulcolax) 10 mg Q12H PRN RECTAL Constipation 03/22/16 15:45 04/21/16 15:44 Clonidine HCl (Catapres) 0.1 mg Q4H PRN ORAL bp over 170 syst 03/21/16 12:45 04/20/16 12:44 03/22/16 00:09 Docusate Sodium (Colace) 100 mg THREE TIMES A DAY ORAL 03/22/16 21:00 04/21/16 20:59 03/26/16 08:59 Enoxaparin Sodium (Lovenox) 30 mg DAILY SUBQ 03/23/16 09:00 04/02/16 08:59 03/26/16 09:02 Finasteride (Proscar) 5 mg DAILY ORAL 03/24/16 13:00 04/23/16 12:59 03/26/16 08:59 Metoprolol Tartrate (Lopressor) 50 mg Q12HR ORAL 03/23/16 09:00 04/22/16 08:59 03/26/16 08:59 Pantoprazole (Protonix) 40 mg EVERY 12 HOURS ORAL 03/21/16 21:00 04/20/16 20:59 03/26/16 08:59 Tamsulosin HCl (Flomax) 0.4 mg BEDTIME ORAL 03/21/16 21:00 04/20/16 20:59 03/25/16 20:11 Zolpidem Tartrate (Ambien) 10 mg HSPRN PRN ORAL Insomnia 03/21/16 07:00 04/20/16 06:59 Height (Feet): 5 Height (Inches): 8.00 Weight (Pounds): 150 Objective exam stable MARCI COLEMAN Mar 26, 2016 09:44
[2016-03-26 11:51] VITALS: BP 130/71
[2016-03-26] MEDS ORDERED: COLACE100 MG ORAL (12:39)
[2016-03-26] MEDS ORDERED: NORVASC2.5 MG ORAL (12:39)
[2016-03-26] MEDS ORDERED: ALLOPURINOL100 M1 ORAL (12:39)
[2016-03-26] MEDS ORDERED: LOVENOX10 MG SUBQ (12:41)
[2016-03-26] MEDS ORDERED: PROSCAR5 MG ORAL (12:42)
[2016-03-26] MEDS ORDERED: PROTONIX40 MG ORAL (12:44)
[2016-03-26] MEDS ORDERED: METOPROLOL SUCC25 MG ORAL (12:44)
[2016-03-26] MEDS ORDERED: NORCO1 E1 ORAL (12:46)
[2016-03-26] MEDS ORDERED: TAMSULOSIN HCL0.4 MG ORAL (12:46)
--- NOTE | 2016-03-26 13:55 | General Progress Note ---
Assessment/Plan Status: stable Assessment/Plan status: Acute Renal Failure - resolving ? CKD underlying- ( Baseline SCr unknown) In hospital for fall and right hip Fx- s/p surgery HEMATURIA, h/o Bladder vs Prostate Ca, had surgery at [facility] ? UTI Encephalopathy / Dementia Plan: no labs today- Monitor renal parameter- Antibiotics- Kidney GEO- pending Lopressor for high BP- Rocephin IV add allopurinol Meds reviewed Subjective ROS Limited/Unobtainable: No Constitutional: Reports: malaise Allergies: Coded Allergies: No Known Allergies (Verified , 03/19/09) Objective Last 24 Hour Vital Signs Date Time Temp Pulse Resp B/P Pulse Ox O2 Delivery O2 Flow Rate FiO2 03/26/16 11:51 97.7 81 21 130/71 99 Room Air 03/26/16 08:59 73 151/71 03/26/16 08:59 73 151/71 03/26/16 08:05 98.1 73 20 151/71 99 Room Air 03/26/16 04:00 97.7 67 18 144/72 97 Room Air 03/26/16 00:00 97.4 68 17 142/87 99 Room Air 03/25/16 21:10 97.9 03/25/16 20:11 65 136/69 03/25/16 20:03 Room Air 03/25/16 20:00 97.9 65 19 136/69 95 Room Air 03/25/16 16:00 97.9 75 19 143/75 Room Air Intake and Output 03/25/16 03/26/16 19:00 07:00 Intake Total 520 ml 360 ml Output Total 300 ml 400 ml Balance 220 ml -40 ml Intake Oral 520 ml 360 ml Output Urine Total 300 ml 400 ml # Voids 2 Height (Feet): 5 Height (Inches): 8.00 Weight (Pounds): 150 General Appearance: no apparent distress Objective other PE not changed CAITLYN LAKHANI Mar 26, 2016 13:55
[2016-03-26] MEDS ORDERED: Tubing IV Secondary IV ONE (14:24)
[2016-03-26] MEDS ORDERED: NS 275ml ONE (14:24)
[2016-03-26] MEDS ORDERED: Zolpidem 5mg tab ORAL PRN (21:00)
--- NOTE | 2016-03-29 14:05 | Discharge Summary ---
Discharge Summary Hospital Course Date of Admission Mar 20, 2016 at 22:03 Date of Discharge Mar 26, 2016 at 14:25 Admitting Diagnosis R hip fx HPI Sharan Stahl is a 89 year old male who was admitted on Mar 20, 2016 at 22:03 for Right Hip Fracture Hospital Course dc summary #[id number] Discharge Medications Continued Medications: Acetaminophen/Hydrocodone ([place] 7.5-325 Tablet) 1 Each Tablet 1 TAB ORAL Q4H PRN for For Pain, #30 TAB 0 Refills Allopurinol* (Allopurinol*) 100 Mg Tablet 100 MG ORAL DAILY, TAB Amlodipine Besylate (Norvasc) 2.5 Mg Tablet 2.5 MG ORAL DAILY, TAB Docusate Sodium* (Colace*) 100 Mg Capsule 100 MG ORAL THREE TIMES A DAY, CAP Enoxaparin* (Lovenox*) 30 Mg/0.3 Ml Inj 30 MG SUBQ DAILY, #30 EA 0 Refills Finasteride* (Proscar*) 5 Mg Tablet 5 MG ORAL DAILY, #30 TAB 0 Refills Metoprolol Succinate* (Metoprolol Succinate*) 25 Mg Tab.er.24h 25 MG ORAL EVERY 12 HOURS, TAB No Known Medications* (NKM - No Known Medications*) . 0 ., 0 Refills Pantoprazole* (Protonix*) 40 Mg Tablet.dr 40 MG ORAL EVERY 12 HOURS, TAB Tamsulosin Hcl (Tamsulosin Hcl*) 0.4 Mg Cap.er.24h 0.4 MG ORAL BEDTIME, CAP Discharge Condition Upon Discharge: stable Discharge Disposition Patient was discharged to SNF/Subacute Facility(03) Discharge Diagnoses: Discharge Instructions Discharge Instructions Special Instructions I have been assigned to complete a D/C Summary on this account. I was not involved in the patient management Cindi Stoddard NP (Vanchtein) Mar 29, 2016 14:05
--- NOTE | 2016-03-30 03:57 | Progress Note ---
DATE: 03/26/2016 CARDIOLOGY PROGRESS NOTE: SUBJECTIVE: The patient has pain control following hip surgery. No shortness of breath. No chest pain. Appetite is fair. OBJECTIVE: VITAL SIGNS: Blood pressure 130/71 to 151/70, heart rate 67 to 81, and respiratory 17 to 20. The patient is afebrile. LUNGS: Clear. CARDIAC: Regular rhythm and rate. Normal S1, S2 with a fourth heart sound. Surgical site is clean and dry. ABDOMEN: Soft. EXTREMITIES: Distal pulses palpable. IMPRESSION: 1. Status post hip fracture and open reduction and internal fixation. 2. Hypertensive heart disease with improved blood pressure control on metoprolol . 3. Acute on chronic renal failure, recovering. 4. Urinary tract infection on antibiotics. PLAN: Would not tighten blood pressure control further at this time. Would consider additional therapy as an outpatient if blood pressure trend continues to increase. We will continue DVT prophylaxis until mobility has improved. Discharge plan noted. Hardik Monae M.D. DR: Stefan JOB#: [id number] CC:
--- NOTE | 2016-03-30 05:28 | Discharge Summary 2 SIG ---
DATE OF ADMISSION: 03/20/2016 DATE OF DISCHARGE: 03/26/2016 REASON FOR ADMISSION: 89-year-old male, sustained a mechanical fall without loss of consciousness or head injury and presented complaining of the right-sided hip pain and headache, which was evaluated in the emergency room. The patient was unable to bear weight. Imaging was done. It was noted that the patient has a right intertrochanteric hip fracture. The patient was admitted for the surgery as well as the pain management. The patient also admitted with underlying acute renal failure and anemia. ADMITTING DIAGNOSES: 1. Status post mechanical fall. 2. Right intertrochanteric hip fracture. 3. Acute pain. 4. Acute renal failure. 5. Anemia and debility. 6. Advanced age. HOSPITAL COURSE: The patient was admitted to the floor. Nephrology consult was requested for acute renal failure. Cardiology consult was requested for cardiac clearance for surgery as well as the orthopedic consult. Echocardiogram revealed preserved ejection fraction 65% to 70%, right ventricular systolic pressure of 44 consistent with mild pulmonary hypertension. No evidence of LVH. CT of the head was negative for any acute intracranial pathology. Pelvic CT revealed acute minimally impacted right femoral neck fracture. Plaster Maker cleared the patient for surgery with minimal risk stratification. He recommended IV hydration and started the patient on beta-adela prior to surgery. Orthopedic surgeon had seen and evaluated the patient and subsequently on 03/22/2016, the patient undergone right hip closed reduction, percutaneous pinning using three 6.5 Briana partially-threaded cancellous screw. Course of recovery was uneventful. The patient worked with physical and occupational therapists. Renal parameters were improving. Engineering Geologist followed the patient. According to neurologist, that was an element of acute on chronic renal failure. Recommended to avoid neurotoxic. Monitor intake and output and renal parameters. The patient was treated for empiric UTI. Urine culture was negative. The patient noted to have hematuria. The patient had underlying history of possible prostate and bladder CA. Urologist consult was requested. Urologist placed the patient on Flomax and Proscar and recommended cystoscopy as outpatient. Urine cleared. Hemoglobin and hematocrit were closely monitored. Anemia was likely secondary to chronic renal disease as well as the iron deficiency anemia. No need for transfusion. Closely monitored at the senior care facility. Pain management provided. Bowel regimen provided. DVT prophylaxis provided. The patient was stable for transfer to senior care facility. FINAL DIAGNOSES: 1. Status post mechanical fall. 2. Right intertrochanteric hip fracture. 3. s/p right hip closed reduction with percutaneous pinning 3. Postoperative pain. 5. Acute on chronic renal failure, improving. 6. Anemia, of chronic renal disease and iron deficiency. 7. Possible urinary tract infection. 8. Mild pulmonary hypertension. 9. Hypertensive heart disease. 10. Questionable history of bladder and prostate cancer. 11. Debility. 12. Advanced age. DISCHARGE MEDICATIONS: See medication reconciliation list. DISCHARGE INSTRUCTIONS: The patient discharged to senior care facility. Follow up with medical doctor at the facility. Gustavo Lopez M.D. I have been assigned to dictate discharge summary on this account and I was not involved in the patient's management. Cindi QuijanoErie County Medical CenterNic N.PEdwin DR: TY JOB#: [id number] CC: CHYNA
--- NOTE | 2016-04-26 12:44 | Diagnostic Imaging Report ---
Indication: Acute renal failure Technique: Grayscale and duplex images of the kidneys, retroperitoneum, and bladder were obtained. Comparison:Reference made to pelvic CT of 03/20/2016 Findings: Right kidney measures 9.8 cm in length. Left kidney measures 10 cm in length. Both kidneys demonstrate normal echogenicity. No hydronephrosis. The right kidney demonstrates a 2.7 cm upper pole cyst. Normal inferior vena cava. A soft tissue mass protrudes into the inferior lateral wall. This is hyperechoic, measures 2.5 x 2.2 x 1.4 cm. Bladder wall is also diffusely thickened. Impression: Inferior wall bladder mass. Further evaluation with cystoscopy is recommended, as clinically indicated. Negative for hydronephrosis Incidental finding of right renal cyst. Dr. Lopez notified by phone findings at the time of interpretation
== END 2016-03-26 14:25 | DRG 481 ==
LOC: EDBD 19:14 → EMR 20:03 → 4E 22:03 → EDBEDREQ 03-21 02:08 → 4E 03-21 03:28
PROC: 0QS634Z Reposition Right Upper Femur with Internal Fixation Device, Percutaneous Approach (ICD-10-PCS; principal; 2016-03-22 15:30)
DX: S72.011A Unspecified intracapsular fracture of right femur, initial encounter for closed fracture (principal); N17.9 Acute kidney failure, unspecified; E87.2 Acidosis; I50.32 Chronic diastolic (congestive) heart failure; N39.0 Urinary tract infection, site not specified; I27.2 Other secondary pulmonary hypertension; I13.10 Hypertensive heart and chronic kidney disease without heart failure, with stage 1 through stage 4 chronic kidney disease, or unspecified chronic kidney disease; V81.5XXA Occupant of railway train or railway vehicle injured by fall in railway train or railway vehicle, initial encounter; Y92.815 Train as the place of occurrence of the external cause; D64.9 Anemia, unspecified; Z59.0 Homelessness; R51 Headache; N18.9 Chronic kidney disease, unspecified; D63.1 Anemia in chronic kidney disease; D50.9 Iron deficiency anemia, unspecified; Z85.46 Personal history of malignant neoplasm of prostate; Z85.51 Personal history of malignant neoplasm of bladder; Z96.653 Presence of artificial knee joint, bilateral; R54 Age-related physical debility; E87.5 Hyperkalemia; N40.1 Benign prostatic hyperplasia with lower urinary tract symptoms; G89.18 Other acute postprocedural pain
CPT/HCPCS: 36415; 70450; 71010; 72170; 72192; 76000; 76775; 80048; 80053; 80061; 81001; 82607; 82728; 82746; 82977; 83036; 83540; 83550; 83735; 83880; 84100; 84153; 84300; 84403; 84550; 85025; 85610; 85730; 86140; 86850; 86900; 86901; 87081; 87086; 89050; 93005; 93306; 94003; 94150; J2250; J2405